=== PATIENT | male | born 1950 | race Caucasian/White ===

== ENCOUNTER 2024-06-15 15:00 | Outpatient (AMB) | payer MEDICARE, SELFPAY ==
--- NOTE | 2024-06-15 15:18 | A.OFFPC_ITS ---
Vital Signs 06/15/24 15:36 Height 5 ft 3 in Weight 163 lb 8 oz BMI 29.0 BP 140/60 H Blood Pressure Location Lt brachial Position Sitting Respiration 14 Pulse 65 Pulse Source Pulse Oximeter Temp 97.9 F Temp Source Oral Pulse Oximetry (%) 96 Oxygen Delivery Method Room Air Intake Visit Reasons: Establish Care Intake Note: establish care Allergies Penicillins Allergy (Intermediate, Verified 06/15/24 15:21) Fainting Tobacco use date assessed: 06/15/24 Dental Screening Dental Screen Date: 06/15/24 Did you have a dental visit in the last 12 months?: Yes Did you have a dental problem in the last 6 months where you did not have access to dental care?: No HPI Establish Care HPI Details New Patient? ?? Prior PCP:? Lizzy Last office visit/CPE:? December Acute issue(s):? Hearing loss Back pain DM A1c in Dec 6.3% ?? PMHx:? CAD, VT, Stents. Murmur. DM2, GERD, Pancreatitis x 2. Ankylosing Spondylitis. SocHx:?Nonsmoker, EtOH None HPI Comments History of Present Illness Details Documentation assistance for John Mendez MD, was provided by Bhaskar Smith,? Research Instructor on 06/15/2024 at 4:05 PM EST. I, Dr. Mendez, have read, observed, and verified documentation. ?? PFSH Social History Housing: Apartment Patient Tobacco Use Status: Never used Tobacco e-Cigarette/Vaping Use: Never Used Second Hand Smoke Exposure: No Current occupational exposures/hazards: No Cognitive needs: No Hearing needs: Yes Vision needs: Yes Questionnaire PHQ-9 Over the last 2 weeks, how often have you been bothered by any of the following problems? 1. Little interest or pleasure in doing things: not at all 2. Feeling down, depressed, or hopeless: not at all 3. Trouble falling or staying asleep, or sleeping too much: not at all 4. Feeling tired or having little energy: not at all 5. Poor appetite or overeating: not at all 6. Feeling bad about yourself - or that you are a failure or have let yourself or your family down: not at all 7. Trouble concentrating on things, such as reading the newspaper or watching television: not at all 8. Moving or speaking so slowly that other people could have noticed. Or the opposite - being so fidgety or restless that you have been moving around a lot more than usual: not at all 9. Thoughts that you would be better off or of hurting yourself in some way: not at all Total score: 0 Depression Screening Interpretation: Negative Depression Screening Done: Yes 46930 - PHQ-9 Billing: Yes Source: Developed by Drs. Matt Ortiz, Jerri Clark, Carlo Coppola and colleagues, with an educational divine from [employer]. Thrive Questionnaire Date Thrive assessed: 06/15/24 I am a: Patient What is your living situation today?: I have a steady place to live Within the past 12 months, did the food you bought not last and you didn't have the money to get more?: Never true Within the past 12 months, did you worry whether your food would run out before you got money to buy more?: I choose not to answer this question Do you have trouble paying for medicines?: No Do you have trouble getting transportation to medical appointments?: No Do you have trouble paying your heating and electricity bill?: I choose not to answer this question Do you have trouble taking care of your child, family member or friend?: I choose not to answer this question Do you have trouble with day-to-day activities such as bathing, preparing meals, shopping, managing finances, etc.?: No Are you currently unemployed and looking for a job?: No Are you interested in more education?: No Please select the resources that you would like help with: None Currently or been in a relationship where the following occur: I choose not to answer THRIVE Score: 0 AUDIT C Alcohol Use Questionnaire (AUDIT-C) 1. How often do you have a drink containing alcohol?: Never Total Score: 0 FRAN-7 AMB Questionnaire FRAN-7 Date FRAN - 7 assessed: 06/15/24 Feeling nervous, anxious, or on edge: 0 = Not at all Not being able to stop or control worryin = Not at all Worrying too much about different things: 0 = Not at all Trouble relaxin = Not at all Being so restless that it is hard to sit still: 0 = Not at all Becoming easily annoyed or irritable: 0 = Not at all Feeling afraid as if something awful might happen: 0 = Not at all Total FRAN-7 score (0-4 normal; 5-9 mild; 10-14 moderate; 15-21 severe): 0 Source: Developed by Drs. Matt Ortiz, Jerri Clark, Carlo Coppola and colleagues, with an educational divine from [employer]. Review of Systems Const Denies chills, Denies fatigue, Denies fever(s), Denies headache(s) and Denies weakness ENT Denies dizziness and Denies headache(s) Card Denies chest pain, Denies lightheadedness, Denies dyspnea and Denies other (Palpitations) Resp Denies cough, Denies dyspnea, Denies wheezing and Denies other ( shortness of breath) Musc Denies numbness and Denies tingling Neuro Denies dizziness, Denies headache(s), Denies numbness, Denies tingling, Denies paresthesias and Denies weakness Psych Denies anxiety and Denies depression Endo Denies fatigue Aller/Immun Denies wheezing Physical exam (Primary Care) Vital Signs: Last Vital Signs Temp 97.9 F 06/15/24 15:36 Pulse 65 06/15/24 15:36 Resp 14 06/15/24 15:36 BP 140/60 H 06/15/24 15:36 Pulse Ox 96 06/15/24 15:36 Oxygen Delivery Method Room Air 06/15/24 15:36 BMI result Body Mass Index 29.0 Tobacco/Smoking Status: Tobacco use Status Tobacco use date assessed 06/15/24 06/15/24 15:39 Patient Tobacco Use Status Never used Tobacco 06/15/24 15:39 e-Cigarette/Vaping Use Never Used 06/15/24 15:39 PHQ-9: PHQ-9 Score PHQ-9: Total score 0 06/15/24 15:39 Depression Screening Interpretation: Negative Thrive Assessment: Date of Thrive Assessment Date Thrive assessed 06/15/24 06/15/24 15:39 Currently or been in a relationship where the following occur: I choose not to answer Const General: no acute distress and well developed Nutritional Appearance: well nourished Orientation/consciousness: patient oriented x3 HENMT Head: Yes normocephalic and Yes atraumatic Eyes General: appearance normal, both eyes and all related structures Pupils: Equal, round and reactive pupils present EOM: EOMs intact bilaterally Resp Effort & Inspection: normal respiratory effort Auscultation: clear to auscultation bilaterally Cardio Rate: regular rate Rhythm: regular rhythm Heart sounds: S1 normal heart sound present, S2 normal heart sound present, no gallops, Murmur heart sound present (Faint) and no rubs Neuro General: patient oriented x3 and gait normal Cranial nerves: Yes Equal, round and reactive pupils present Psych Affect: normal affect Coding Level of Care Code New Pt Level 4 (59730) Diagnoses Hearing loss H91.90 Back pain M54.9 Diabetes E11.9 GERD (gastroesophageal reflux disease) K21.9 History of VT (myocardial infarction) I25.2 Heart murmur R01.1 Coronary artery disease I25.10 History of pancreatitis Z87.19 Cerumen impaction H61.20 Hyperlipidemia E78.5 Hypertension I10 Ankylosing spondylitis M45.9 Neoplasm of uncertain behavior of skin D48.5 Laboratory exam ordered as part of routine general medical examination Z00.00 Additional Codes PHQ-9 - 94671 - PHQ-9 Billing: Yes ([id number]) Assessment & Plan Assessment & Plan (1) Hearing loss: Code(s): H91.90 - Unspecified hearing loss, unspecified ear Category: Medical Plan: Worsening?hearing?loss?and?difficulty?understanding?speech Does?have?mild?cerumen?impactions?which?were?irrigated?today. Has?hearing?aids?but?says?they?needs?be?too?loud?be?comfortable. Referred?to?[facility]?speech?hearing?for?audiology?testing (2) Back pain: Code(s): M54.9 - Dorsalgia, unspecified Category: Medical Plan: History?of?ankylosing?spondylitis Can?not?take?NSAIDs?due?to clopidogrel?and?aspirin?for?coronary?artery?disease?with?stents Referred?to?Rheumatology He?has?been?on?Tylenol?No.?3?which?is?an?old?prescription. He?says?he?only?takes?these?very?rarely It?did?let?him?know?that?opioids?can?make?his?hearing?loss?worse. As?he?is?taking?his?very?sparingly?this?is?less?likely?to?be?a?factor. We?discussed?that?I?would?prescribed?this?on?a?intermittent?basis?when?has?a?fla re-up.??Currently?no?flare?up. (3) Diabetes: Code(s): E11.9 - Type 2 diabetes mellitus without complications Category: Medical Plan: Last?A1c?showed?good?control. Will?check?this?again?with?labs Continue?current?medication (4) GERD (gastroesophageal reflux disease): Code(s): K21.9 - Gastro-esophageal reflux disease without esophagitis Category: Medical Plan: Managed?with?famotidine.??Had?been?on?pantoprazole?in?the?past. Continue?famotidine (5) History of VT (myocardial infarction): Code(s): I25.2 - Old myocardial infarction Category: Medical Plan: As?above,?coronary?artery?disease,?VT?and?stents.??He?was?seen?by Dr. Reynoso but?had?missed?an?appointment?and?is?no?longer?a?patient?there. Referred?to?Cardiology?at?[facility] (6) Heart murmur: Code(s): R01.1 - Cardiac murmur, unspecified Category: Medical Plan: Faint,?stable?murmur (7) Coronary artery disease: Code(s): I25.10 - Atherosclerotic heart disease of [place] coronary artery without angina pectoris Category: Medical Plan: As above referred to Cardiology (8) History of pancreatitis: Code(s): Z87.19 - Personal history of other diseases of the digestive system Category: Medical Plan: Awaiting?records This?sounds?like?gallstone?pancreatitis?x2 Patient?was?referred?to?Gastroenterology (9) Cerumen impaction: Code(s): H61.20 - Impacted cerumen, unspecified ear Category: Medical Plan: Resolved?after?irrigation Try?Debrox?drops (10) Hyperlipidemia: Code(s): E78.5 - Hyperlipidemia, unspecified Category: Medical Plan: Continue?rosuvastatin Check?lipids (11) Hypertension: Code(s): I10 - Essential (primary) hypertension Category: Medical Plan: Continue?metoprolol?and?spironolactone.??Blood?pressure?is?little?elevated?today ?and?goal?is?less?than?130/80. First?visit?with?this?patient. If?blood?pressures?are?still?running?high,?will?adjust?his?medication (12) Ankylosing spondylitis: Code(s): M45.9 - Ankylosing spondylitis of unspecified sites in spine Category: Medical Plan: Referred?to?Rheumatology?as?above (13) Neoplasm of uncertain behavior of skin: Code(s): D48.5 - Neoplasm of uncertain behavior of skin Category: Medical Plan: Small?lesion?on?right?cheek Hospital?and?basal?cell?lesion Referred?to?dermatology (14) Laboratory exam ordered as part of routine general medical examination: Code(s): Z00.00 - Encounter for general adult medical examination without abnormal findings Category: Medical Plan: Check?labs Orders: Orders Comprehensive [place]. Panel Fast Today Z00.00 - Encounter for general adult medical examination without abnormal findings Prostate Specific Antigen Scr Today Z12.5 - Encounter for screening for malignant neoplasm of prostate UA and rflx microscopic Today Z00.00 - Encounter for general adult medical examination without abnormal findings TSH reflex Free T4 Today Z00.00 - Encounter for general adult medical examination without abnormal findings CRP High Sensitivity Today M45.9 - Ankylosing spondylitis of unspecified sites in spine Erythrocyte Sedimentation Rate Today M45.9 - Ankylosing spondylitis of unspecified sites in spine Complete Blood Count Auto Diff Today Z00.00 - Encounter for general adult medical examination without abnormal findings Microalbumin, Random (w Creat) Today I10 - Essential (primary) hypertension Lipid Panel Today Z00.00 - Encounter for general adult medical examination without abnormal findings Hemoglobin A1c Today D48.5 - Neoplasm of uncertain behavior of skin, R73.01 - Impaired fasting glucose Referrals Audiology Referral H91.90 - Unspecified hearing loss, unspecified ear Cardiology Referral I25.10 - Atherosclerotic heart disease of [place] coronary artery without angina pectoris, I25.2 - Old myocardial infarction Gastroenterology Referral K21.9 - Gastro-esophageal reflux disease without esophagitis, Z12.11 - Encounter for screening for malignant neoplasm of colon, Z87.19 - Personal history of other diseases of the digestive system Rheumatology Referral M45.9 - Ankylosing spondylitis of unspecified sites in spine Dermatology Referral D48.5 - Neoplasm of uncertain behavior of skin
[2024-06-15 15:36] VITALS: BP 140/60; PULSE 65; RESP 14; TEMP 36.6; O2SAT 96; BMI 29.0
--- OUTSIDE RECORDS SUMMARY | 2024-06-15 17:31 | XMS_ITS | Encounter Summary ---
Author Name [facility] Address [address] [place] [address] Care Team Providers Care Rehabilitation Services Counselor Name Role Phone CARMELINA CHRISTIANSON Primary Care Provider Unavailabl e Insurance Providers: All historical and current Section Date Range: From patient's date of to the date document was created. This section includes the names of all active insurance providers for the patient. Insurance Provider Type of Coverage Plan Name Start of Policy Coverage End of Policy Coverage Group Number Member ID Insurance Provider's Telephone Number Policy Magana's Name Patient's Relationship to Policy Magana [facility] ([facility]) MEDICARE ADVANTAGE M[employer] ([facility]) Nov 22, 2013 [id number] STEPHANIA,DENI PHEN PATIENT [facility] ([facility]) MEDICARE ADVANTAGE [employer] ([facility]) Nov 22, 2013 [id number] STEPHANIA,DENI PHEN PATIENT [facility] ([facility]) MEDICARE ADVANTAGE [employer] ([facility]) Nov 22, 2013 [id number] [phone] STEPHANIA,DENI PHEN PATIENT Selected Encounter This section includes the information on record at [place] for the Encounter. Date/Time Encounter Type Encounter Description Reason Pro vider Source May 27, 2024 12:00 AM Outpatient Encounter EVENT (HISTORICAL) [facility] Encounter Template Text not used by [facility] Vital Signs: All taken on the encounter date This section contains inpatient and outpatient Vital Signs collected on the date of the Encounter. Date/Time Temperature Pulse Blood Pressure Respiratory Rate SP02 Pain Height Weight Body Mass Index Source May 27, 2024 10:45 AM 169/67 [facility] May 27, 2024 10:45 AM 98.1 63 174/80 18 97 0 63 161.6 29 [facility] Social History: Smoking Status (Most current) and Tobacco Use (All prior to encounter date) This section includes the most current, and the historical, smoking and tobacco- related health factors from the [place] facility where the Encounter took place. Current Smoking Status This section includes the most current smoking, or tobacco-related health factor, from the [place] facility where the Encounter took place. Date/Time Current Smoking Status Comment Facil ity Apr 30, 2020 08:11 AM VA-TOBACCO NEVER USED [facility] Tobacco Use History This section includes a history of the smoking, or tobacco-related health factors, that were collected on or before the date of the Encounter. The data comes from the [place] facility where the Encounter took place. Date/Time Smoking Status/Tobacco Use Comment F acility Mar 25, 2017 03:48 PM LIFETIME NON-TOBACCO USER [facility] Advance Directives: All historical and current Section Date Range: From patient's date of to the date document was created. This section includes ALL of a patient's completed or amended [place] Advance and Rescinded Directives. The entries below indicate that a directive exists for the patient, but an actual copy is not included with this document. The data comes from all [place] facilities. Date Advance Directives Provider Source Mar 14, 2013 ADVANCE DIRECTIVE DISCUSSION [facility]FREN [facility]LEMAN [facility] Mar 14, 2013 ADVANCE DIRECTIVE MELLISSA AVALOS [facility] Nov 05, 2012 ADVANCE DIRECTIVE DISCUSSION VIRY PUCKETT [facility] Feb 27, 2011 ADVANCE DIRECTIVE DISCUSSION CATRACHITA GAUTAM DEPT [facility] Jan 16, 2011 ADVANCE DIRECTIVE DISCUSSION VIRY PUCKETT DEPT [facility] Jan 06, 2011 ADVANCE DIRECTIVE DISCUSSION STEFANY MATTHEW DEPT OF [facility]
--- OUTSIDE RECORDS SUMMARY | 2024-06-15 17:31 | XMS_ITS | Encounter Summary ---
Author Name [facility] [facility] [place] Address [address] [place] [address] Care Team Providers Care Quality Liaison Name Role Phone CARMELINA CHRISTIANSON Primary Care [...] Magana's Name Patient's Relationship to Policy Magana [facility] ([facility]) MEDICARE ADVANTAGE MCR ([facility]) Nov 22, 2013 [id number] [phone] STEPHANIA,DENI PHEN PATIENT [facility] ([facility]) MEDICARE ADVANTAGE MCR ([facility]) Nov 22, 2013 [id number] STEPHANIA,DENI PHEN PATIENT [facility] ([facility]) MEDICARE ADVANTAGE MCR ([facility]) Nov 22, 2013 [id number] STEPHANIA,DENI PHEN PATIENT Selected Encounter This section includes the information on record at [place] for the Encounter. Date/Time Encounter Type Encounter Description Reason Provider Source May 27, 2024 10:30 AM OFFICE O/P EST LOW 20 MIN PRIMARY CARE/MEDICINE ICD-10-CM I10 Essential (primary) hypertension CARMELINA CHRISTIANSON Allie Encounter Template Text not used by [place] Assessments - Encounter Diagnoses This section includes the primary and secondary diagnoses documented for the Encounter. Date/Time Primary/Secondary Diagnosis Diagnosis Name Provider Source May 27, 2024 11:28 AM PRIMARY Essential (primary) hypertension CARMELINA CHRISTIANSON ARMEN May 27, 2024 11:28 AM SECONDARY Anxiety disorder, unspecified CARMELINA CHRISTIANSON RONDA May 27, 2024 11:28 AM SECONDARY Encounter for immunization ELIJAH HIGGINBOTHAM RONDA Immunizations: All administered on the encounter date This section contains immunizations associated to the Encounter. Immunization Series Date Issued Reaction Comments INFLUENZA, HIGH-DOSE, TRIVALENT, PF May 27 Social History: Smoking Status (Most current) and Tobacco Use (All prior to encounter date) This section includes the most current, and the historical, smoking and tobacco- related health factors from the [place] facility where the Encounter took place. Current Smoking Status This section includes the most current smoking, or tobacco-related health factor, from the [place] facility where the Encounter took place. Date/Time Current Smoking Status Comment Silvia ity May 27, 2023 10:30 AM VA-TOBACCO NEVER USED RONDA Tobacco Use History This section includes a history of the smoking, or tobacco-related health factors, that were collected on or before the date of the Encounter. The data comes from the [place] facility where the Encounter took place. Date/Time Smoking Status/Tobacco Use Comment F acility May 12, 2022 11:00 AM VA-TOBACCO NEVER USED RONDA May 30, 2021 10:30 AM VA-TOBACCO NEVER USED RONDA Nov 08, 2018 11:16 AM VA-TOBACCO NEVER USED RONDA Apr 27, 2018 06:23 AM VA-TOBACCO NEVER USED RONDA Advance Directives: All historical and current Section Date Range: From patient's date of to the date document was created. This section includes ALL of a patient's completed or amended VA Advance and Rescinded Directives. The entries below indicate that a directive exists for the patient, but an actual copy is not included with this document. The data comes from all [place] facilities. Date Advance Directives Provider Source Mar 14, 2013 ADVANCE DIRECTIVE DISCUSSION EFREN ALEMAN [facility] Mar 14, 2013 ADVANCE DIRECTIVE MELLISSA AVALOS [facility] Nov 05, 2012 ADVANCE DIRECTIVE DISCUSSION VIRY PUCKETT [facility] Feb 27, 2011 ADVANCE DIRECTIVE DISCUSSION CATRACHITA GAUTAM KYLEE DELACRUZ [facility] Jan 16, 2011 ADVANCE DIRECTIVE DISCUSSION VIRY PUCKETT [facility] Jan 06, 2011 ADVANCE DIRECTIVE DISCUSSION MATTHEWSTEFANY [facility] Encounter Notes: All associated encounter notes This section contains the clinical notes associated to the Encounter. Date/Time Encounter Note(s) Provider Source May 27, 2024 10:58 AM PREVENTIVE MEDICIN E NURSING NOTE: LOCAL TITLE: CLINICAL REMINDERS/NURSING STANDARD TITLE: PREVENTIVE MEDICINE NURSING NOTE DATE OF NOTE: MAY 27, 2024@10:58 ENTRY DATE: MAY 27, 2024@10:58:43 AUTHOR: EMILY HIGGINBOTHAM COSIGNER: URGENCY: STATUS: COMPLETED Advance Directive Screen MH AD: Patient does not have a completed advance directive on file at any facility, [place] or outside. S/he is not interested in completing one at this time. The patient received education about Advance Directives and written notification of his/her rights. Suicide Screen: C-SSRS Screening [place] Suicide Severity Rating Scale (C-SSRS) screener 1. Over the past month, have you wished you were or wished you could go to sleep and not wake up? No 2. Over the past month, have you had any actual thoughts of killing yourself? No 3. Over the past month, have you been thinking about how you might do this? Response not required due to responses to other questions. 4. Over the past month, have you had these thoughts and had some intention of acting on them? Response not required due to responses to other questions. 5. Over the past month, have you started to work out or worked out the details of how to kill yourself? Response not required due to responses to other questions. 6. If yes, at any time in the past month did you intend to carry out this plan? Response not required due to responses to other questions. 7. In your lifetime, have you ever done anything, started to do anything, or prepared to do anything to end your life (for example, collected pills, obtained a gun, gave away valuables, went to the roof but didn't jump)? No 8. If YES, was this within the past 3 months? Response not required due to responses to other questions. Homelessness/Food Insecurity Screen: In the past 2 months, have you been living in stable housing that you own, rent, or stay in as part of a household? Yes - Living in stable housing. Are you worried or concerned that in the next 2 months you may NOT have stable housing that you own, rent, or stay in as part of a household? No - Not worried about housing near future The [facility] reports the following: Within the past 12 months, you worried whether your food would run out before you got money to buy more. Never true Within the past 12 months, the food you bought just didn't last and you didn't have money to get more. Never true Depression Screening: Perform PHQ-2 A PHQ-2 screen was performed. The score was 0 which is a negative screen for depression. Over the past two weeks, how often have you been bothered by the following problems? 1. Little interest or pleasure in doing things Not at all 2. Feeling down, depressed, or hopeless Not at all Falls & Incontinence Screen: Falls Screen: During the past 12 months, did the patient report any falls? 4. No falls within the past year. Incontinence Screen: During the past 12 months, has the patient has any characteristics of incontinence (ability, voiding, leakage, etc.)? No incontinence. Pneumococcal Conjugate Vaccine (PCV15/PCV20): Refuses PCV vaccine Immunization: PNEUMOCOCCAL CONJUGATE, UNSPECIFIED FORMULATION Refusal Reason: PATIENT DECISION Patient refuses all immunization(s) in the PneumoPCV group Date Documented: 05/27/24 11:00 Influenza Immunization: Influenza, High-Dose, Trivalent, Preservative Free (Fluzone-Syringe) Administered: INFLUENZA, HIGH-DOSE, TRIVALENT, PF Date Administered: May 27, 2024 10:30 Series: [employer] Executive Director: SANOFI PASTEUR Lot: [id number] Exp Date: Nov 21, 2024 [facility]: [phone] Admin Route/Site: INTRAMUSCULAR/LEFT DELTOID Dosage: 0.5mL Vaccine Information Statement(s): INFLUENZA(FLU) VACC(INACTIVATED OR RECOMBINANT)VIS Dec 28, 2020 (BULGARIAN) Order By: Policy Administered By: Emily Higginbotham The Influenza Vaccine Information Statement (VIS) was reviewed with the patient/caregiver which lists the benefits and risks of the vaccine and the risks of not receiving the Influenza vaccine. The patient/caregiver denied any prior severe reaction to this vaccine or its components or a severe allergic reaction, such as anaphylaxis, to any vaccine or any injectable therapy. The patient/caregiver gave verbal consent to receive the vaccine. Alcohol Use Screen (AUDIT-C): Alcohol Screen: SCREEN FOR ALCOHOL (AUDIT-C) An alcohol screening test (AUDIT-C) was negative (score=0). 1. How often did you have a drink containing alcohol in the past year? Consider a drink to be a 12 ounce can or bottle of regular beer, 8 ounces of malt liquor, a 5 ounce glass of table wine, or a 1.5 ounce shot of liquor (like scotch, gin, or vodka). Never 2. How many drinks containing alcohol did you have on a typical day when you were drinking in the past year? Response not required due to responses to other questions. 3. How often did you have six or more drinks on one occasion in the past year? Response not required due to responses to other questions. COVID-19 Immunization: Refused Moderna Monovalent COVID-19 vaccine Immunization: COVID-19 (MODERNA), MRNA, LNP-S, PF, 50 MCG/0.5 ML (AGES 12+ YEARS) Refusal Reason: PATIENT DECISION Patient refuses all immunization(s) in the COVID-19 group Date Documented: 05/27/24 11:00 Herpes Zoster (Shingles) Vaccine: The patient declines to receive the recommended dose of zoster (shingles) vaccine. Immunization: ZOSTER RECOMBINANT Refusal Reason: PATIENT DECISION Patient refuses all immunization(s) in the ZOSTER group Date Documented: 05/27/24 11:01 RSV Immunization: Respiratory Syncytial Virus (RSV) Vaccine: Refused [email or web address] (RSV vaccine, adjuvanted, Arexvy). Immunization: RSV, RECOMBINANT, PROTEIN SUBUNIT RSVPREF3, ADJUVANT RECONSTITUTED, 0.5 ML, PF Refusal Reason: PATIENT DECISION Patient refuses all immunization(s) in the RSV group Date Documented: 05/27/24 11:01 Sexual Orientation: The patient thinks of their sexual orientation as: Straight or Heterosexual RHS Screen: RHS Screen Session Format: Face to Face Environmental Check Upon inquiry, the individual reports that the environment is safe to proceed. Informed Consent to Screen and Document The individual consents to proceed with screening. The individual consents to documentation of responses. PRIMARY SCREEN: In the past 12 months, how often did a current or former intimate partner (e.g., boyfriend, girlfriend, , , sexual partner): 1. Scream or curse at you Never 2. Insult or talk down to you Never 3. Threaten you with harm Never 4. Physically hurt you Never 5. Force or pressure you to have sexual contact against your will, or when you were unable to say no Never ?? The HITS tool (items 1-4 above) is [place] copyright protected by Arvin Mcgraw MD, and the user has full rights to use it throughout the [place] system. PRIMARY SCREEN RESULT: The Primary Screen is NEGATIVE. The individual answered never to all forms of IPV above (i.e., answered never to all 5 items) The individual accepts education and/or resources: No EDUCATION: The individual indicated readiness to learn. Education offered during this session as noted above. The individual indicated understanding by asking relevant questions and making appropriate comments. No barriers to learning were observed or identified. PAVE Foot Check: Patient declined limb care exam. The patient was advised the [place] mandates all patients with diabetes mellitus, end stage renal disease, peripheral vascular disease, or sensory neuropathy should have a complete foot check completed annually. This includes a visual exam of the skin, pedal pulses and a sensory exam. Patients with any abnormality noted during the foot check should be referred to a specialist. Eye Care At-Risk Screen : Patient identified to be at risk for the following eye condition(s): DIABETIC RETINOPATHY: Diabetes Diagnosis Information: Encounter Diagnosis: 05/27/2023@10:30 E11.9 (ICD-10-CM) Type 2 Diabetes Mellitus without Complications rank: SECONDARY Prov. Narr. - Type 2 diabetes mellitus ([facility] [id number]) MACULAR DEGENERATION: Macular Degeneration Risk Factors Information: Reminder Term: VA-AMD RISK FACTORS Hospitalization Diagnosis 08/05/2020@11:15:36 I25.10 (ICD-10-CM) Atherosclerotic Heart Disease of [place] Coronary Artery without Angina Pectoris; data node: M ICD4; (Fee) Action: No Referral Ordered: The patient declined/refused referral for Tele-Eye screening and Eye Clinic appointment. Comment: decline /es/ EMILY HIGGINBOTHAM LPN PACT 10 Signed: 05/27/2024 11:02 EMILY HIGGINBOTHAM RONDA May 27, 2024 06:43 AM PHYSICIAN NOTE: LOCAL TITLE: MD NOTE STANDARD TITLE: PHYSICIAN NOTE DATE OF NOTE: MAY 27, 2024@06:43 ENTRY DATE: MAY 27, 2024@06:43:23 AUTHOR: CARMELINA CHRISTIANSON EXP COSIGNER: URGENCY: STATUS: COMPLETED HISTORY OF PRESENT ILLNESS: FATEMEH CAT is a 73 yo MALE who presents at the [facility] for for his annual visit. He maintains a nonVA PCP: Dr Mendez in [place]. He utilizes [place] audiology services. Active problems - Computerized Problem List is the source for the followin. Anxiety disorder 2. History of pancreatitis 3. Colonoscopy Screening 4. Ankylosing spondylitis 5. Hypertension 6. History of myocardial infarction 7. Type 2 diabetes mellitus 8. Hemorrhoids 9. Gastroesophageal reflux disease 10. Peripheral vascular disease 11. Arthritis 12. Hyperlipidemia 13. 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 Primary Care Provider Active and Recently Outpatient Medications (including Supplies): Active Non-VA Medications Status 1) Non-VA ALPRAZOLAM 0.5MG TAB 0.5MG BY MOUTH ACTIVE 2) Non-VA ASPIRIN 81MG EC TAB 81MG BY MOUTH ACTIVE 3) Non-VA CLOPIDOGREL BISULFATE 75MG TAB 75MG BY MOUTH ACTIVE 4) Non-VA FAMOTIDINE 40MG TAB 40MG BY MOUTH ONCE DAILY ACTIVE NEEDED 5) Non-VA FLUTICASONE NASAL SOLN,NASAL INTO EACH NOSTRIL ACTIVE 6) Non-VA GLIPIZIDE 2.5MG SA TAB 2.5MG BY MOUTH ONCE DAILY ACTIVE 7) Non-VA METOPROLOL TARTRATE 50MG TAB 50MG BY MOUTH TWICE ACTIVE DAILY 8) Non-VA NITROGLYCERIN 0.4MG TAB,SUBLINGUAL UNDER THE TONGUE ACTIVE EVERY 5 MINUTES NEEDED 9) Non-VA ROSUVASTATIN CA 40MG TAB 40MG BY MOUTH ACTIVE Indication: FOR HIGH CHOLESTEROL 10) Non-VA SPIRONOLACTONE 25MG TAB 25MG BY MOUTH ONCE DAILY ACTIVE ALLERGIES: ========= PENICILLIN HISTORY: PERIOD OF SERVICE - [employer] FROM Jan TO Dec COMBAT SERVICE INDICATED: No VITAL SIGNS: Blood Pressure 169/67 (05/27/2024 10:45) BP At PCP office: 124/78 Pulse 63 (05/27/2024 10:45) Respiration 18 (05/27/2024 10:45) Pulse Oximetry 97% (05/27/2024 10:45) Temperature 98.1 F [36.7 C] (05/27/2024 10:45) Pain 0 (05/27/2024 10:45) Height 63 in [160.0 cm] (05/27/2024 10:45) Weight 161.6 lb [73.30 kg] (05/27/2024 10:45) BMI BMI: 28.7 REVIEW OF SYSTEMS: CARDIOVASCULAR: No chest pain, no palps RESPIRATORY: No SOB, no wheezing GASTROINTESTINAL: No abd pain, no N/V/D MUSCULOSKELETAL: No joint pain PSYCHIATRIC: ++ anxiety, no depression NEUROLOGIC: No H/A, no weakness EXAMINATION: GENERAL: WD/WN in NAD HEENT: Moist mucosa NECK: Supple HEART: RRR, S1-S2, no murmurs LUNGS: CTA B/L ABDOMEN: Soft, NT/ND EXTREMITIES: FROM x 4, no edema NEUROLOGIC: AAO x3, no focal findings PSYCHIATRIC: Good eye contact, affect normal ASSESSMENT/PLAN: 1. CAD s/p NV x2 (2004 & 2016) w/8 stents total: on Plavix 75mg/day, on BB, ASA, & Statin, managed by Dr Reynoso 2. HTN: on metoprolol tartrate 50mg BID and spironolactone 25mg/day, BP at PCP office last visit was 124/78 3. DM II: on glipizide ER 2.5mg/day Eye exam: 2022 - nonVA [facility] - neg DR tatiana coxt Podiatry exam: 2022 - performed by nonVA PCP - neg DPN 4. Mixed Hyperlipidemia: on rosuvastatin 40mg QHS 5. GERD: uses TUMS prn 6. Anxiety D/O: on alprazolam 0.25mg/day prn (does not take it often), lost his (2011) and his son (2012) 7. Allergic Rhinitis: on fluticasone NS prn 8. Ankylosing Spondylitis: uses tylenol #3 for occ flare-ups FOLLOW UP 1 Year - Annual - vet to bring PCP labs ========= No barriers; Patient understands and agrees to current treatment plan. If pt has any questions, concerns, or changes in current health status he/she will call or come in to the [facility]. Avg Risk Colorectal Cancer Screen: AVERAGE RISK colorectal cancer screening is due based on information available to this clinical reminder Patient has arranged or is choosing to arrange this care independent of and without assistance from this VA. Hemoglobin A1C: Patient declines Hemoglobin A1C testing at this time. Hepatitis C Testing: Patient declines HCV lab test. High Risk for HYPOglycemia: Not reported. Hypoglycemic screen clinical decision: Home Telehealth (CCHT) Referral: Patient not a candidate for CCHT Program at this time. Assess Statin Use - Lipids (CVD/DM): The patient is still taking the NON-VA statin medication as documented. HIV Screening: Patient has been offered HIV testing and has declined. I have explained that HIV testing is recommended for all adults, even if all risk factors are absent. The patient was educated on the risk of delayed screening. Medication Reconciliation: Outpatient: Has the patient been taking medications as documented in the EMLR? YES: The patient has been taking medications as documented in the EMLR. Essential Medication List for Review used to complete this medication reconciliation. INCLUDED IN THIS LIST: Alphabetical list of active outpatient prescriptions dispensed from this [place] (local) and dispensed from another [place] or [facility] facility (remote) as well as inpatient orders (local, pending and active), local clinic medications, locally documented non-VA medications, and local prescriptions that have or been discontinued in the past 90 days. - All changes in medications, including all non-VA/Herbal/OTC medications were entered into CPRS. - If there were any medications the patient should no longer take, they were discontinued. - The patient/caregiver was instructed to update this list, discard old lists, and take this list to the next appointment, whether with a VA or non-VA provider. JLV Link Data on this list may not be complete. Please check JLV. Allergies/ADRs (Tool #5) FACILITY ALLERGY/ADR -------- Mary DELACRUZ [facility] LOVASTATIN C.WCristi DELACRUZ [facility] PENICILLIN C.W. PAULA DELACRUZ [facility] SIMVASTATIN [facility] LOVASTATIN [facility] PENICILLIN [facility] SIMVASTATIN [place] CNT WSTRN [place] [facility] PENICILLIN Med Recon [facility] (Tool #1) INCLUDED IN THIS LIST: Alphabetical list of active outpatient prescriptions dispensed from this [place] (local) and dispensed from another [place] or [facility] facility (remote) as well as inpatient orders (local pending and active), local clinic medications, locally documented non-VA medications, and local prescriptions that have or been discontinued in the past 90 days. Non-VA Meds Last Documented On: May 27, 2024 NOTE The display of VA prescriptions dispensed from another [place] or [facility] facility (remote) is limited to active outpatient prescription entries matched to National Drug File at the originating site and may not include some items such as investigational drugs, compounds, etc. NOT INCLUDED IN THIS LIST: Medications self-entered by the patient into personal health records (i.e. [facility]) are NOT included in this list. Non-VA medications documented outside this [place], remote inpatient orders (regardless of status) and remote clinic medications are NOT included in this list. The patient and provider must always discuss medications the patient is taking, regardless of where the medication was dispensed or obtained. ------ Non-VA ALPRAZOLAM 0.5MG TAB TAKE ONE TABLET BY MOUTH Non-VA medication not recommended by VA provider. Non-VA ASPIRIN 81MG EC TAB TAKE ONE TABLET BY MOUTH Non-VA medication not recommended by VA provider. Non-VA CLOPIDOGREL BISULFATE 75MG TAB TAKE ONE TABLET BY MOUTH Non-VA medication not recommended by VA provider. Non-VA FAMOTIDINE 40MG TAB TAKE ONE TABLET BY MOUTH ONCE DAILY NEEDED Patient wants to buy from Non-VA pharmacy. Medication prescribed by Non-VA provider. Non-VA FLUTICASONE NASAL SOLN,NASAL INSTILL INTO EACH NOSTRIL Non-VA medication not recommended by VA provider. Non-VA GLIPIZIDE 2.5MG SA TAB TAKE ONE TABLET BY MOUTH ONCE DAILY Medication prescribed by Non-VA provider. Non-VA METOPROLOL TARTRATE 50MG TAB TAKE ONE TABLET BY MOUTH TWICE DAILY Medication prescribed by Non-VA provider. Non-VA NITROGLYCERIN 0.4MG TAB,SUBLINGUAL DISSOLVE UNDER THE TONGUE EVERY 5 MINUTES NEEDED Non-VA medication not recommended by VA provider. Non-VA ROSUVASTATIN CA 40MG TAB TAKE ONE TABLET BY MOUTH Non-VA medication not recommended by VA provider. Indication: FOR HIGH CHOLESTEROL Non-VA SPIRONOLACTONE 25MG TAB TAKE ONE TABLET BY MOUTH ONCE DAILY Non-VA medication not recommended by VA provider. ------ SUPPLIES ------ HTN Assess for Elevated BP>=140/90: The patient's blood pressure is usually adequately controlled. No medication changes are indicated at this time. /maryann/ CARMELINA CHRISTIANSON MD Primary Care Physician Signed: 05/27/2024 11:30 CARMELINA CHRISTIANSON RONDA
--- OUTSIDE RECORDS SUMMARY | 2024-06-15 17:31 | XMS_ITS | Continuity of Care Document ---
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 It does not include entries that were removed or entered in error. Problem Status Onset Date Problem Type Date of Resolution Comments Source Allergic rhinitis Active Condition [place] Angina Pectoris * (ICD-9-CM 413.9) Active Condition Mary DELACRUZ [facility] Ankylosing spondylitis Active Condition [facility] Ankylosing Spondylitis * (ICD-9-CM 720.0) Active Condition Mary DELACRUZ [facility] Anxiety Active Condition [place] Anxiety (SNOMED CT [id number]) Active Condition Mary DELACRUZ [facility] Anxiety disorder Active Condition [facility] Arthritis Active Condition [facility] Bilateral sensory hearing loss Active Condition [place] CAD/ASHD UNSP VSL Active Condition Mary DELACRUZ [facility] Chest Pain * (ICD-9-CM 786.50) Active Condition Mary DELACRUZ [facility] Colonoscopy Screening Active Condition [facility] Depression * (ICD-9-CM 300.4/311.) Active Condition Mary DELACRUZ [facility] Dermatitis * (ICD-9-CM 692.9) Active Condition Mary DELACRUZ [facility] Diabetes mellitus Active Condition Mary DELACRUZ [facility] Epidermal Cyst * (ICD-9-CM 706.2) Active Condition Mary DELACRUZ [facility] Essential hypertension Active Condition [place] Gastroesophageal reflux disease Active Condition [facility] GERD * (ICD-9-CM 530.81) Active Condition Mary [facility]ACRZU [facility] Hearing loss * (ICD-9-CM 389.9) Active Condition C.Abrahan DELACRUZ [facility] Hemorrhoids Active Condition [facility] Hernia of abdominal wall Active Condition [place] History of myocardial infarction Active Condition Mar 27, 2017 Entered By: CARMELINA CHRISTIANSON Comment: Hx CO w/Stent 06/16/16Mar 27, 2017 Entered By: CARMELINA CHRISTIANSON Comment: Hx CO w/6 stents 2004 [facility] History of pancreatitis Active Condition Mar 27, 2017 Entered By: CARMELINA CHRISTIANSON Comment: 2013 [facility] Hyperlipidemia Active Condition [facility] HYPERLIPIDEMIA Active Condition C.Abrahan DELACRUZ [facility] Hypertension Active Condition [facility] HYPERTENSION,UNSPEC Active Condition Martha DELACRUZ [facility] Impacted cerumen * (ICD-9-CM 380.4) Active Condition Mary DELACRUZ [facility] 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 Mar 25, 2017 Entered By: CARMELINA CHRISTIANSON Comment: EF 40-45% [facility] Lipoma Active Condition [place] Major Depressive Disorder, Single Episode, in Full Remission Active Condition Mary [facility]ACRUZ [facility] CO,HX Active Condition Mary DELACRUZ [facility] Multi vessel coronary artery disease Active Condition [place] Obesity Active Condition [place] Obesity * (ICD-9-CM 278.00) Active Condition Mary DELACRUZ [facility] Other disorders of skin and subcutaneous tissue (ICD-9-CM 709.9) Active Condition Mary [facility]ACRUZ [facility] Pain in joint involving shoulder region (ICD-9-CM 719.41) Active Condition Mary [facility]ACRUZ [facility] Peripheral vascular disease Active Condition [facility] [place] [facility] Primary Care Provider Active Condition May 12, 2022 Entered By: JORDAN HIGGINBOTHAM Comment: Dr Marlen Romo [facility] Rhinitis * (ICD-9-CM 472.0) Active Condition Mary DELACRUZ [facility] S/P PTCA Active Condition Mary DELACRUZ [facility] Tinnitus Active Condition [place] Type 2 diabetes mellitus [facility] [place] [facility] Diagnosis: ICD-10-CM I10 Essential (primary) hypertension Active Diagnosis [place] Diagnosis: ICD-10-CM I51.9 Heart disease, unspecified Active Diagnosis [place] Medications Combined list of outpatient medications from Department of Defense and Veterans Affairs facilities.Medications provided include 1) outpatient medications from the last 15 months, and 2) patient-reported medications. Medication Details Route Status Patient Instructions Prescription Expires Prescription Number Last Dispense Date Ordering Provider Order Date Order Qty Source ALPRAZOLAM 0.25MG TAB TAKE ONE TABLET BY MOUTH ORAL ACTIVE TYRON FUENTES MD 2014 [place] ALPRAZOLAM 0.5MG TAB TAKE ONE TABLET BY MOUTH ORAL ACTIVE IRAM CHRISTIANSON SA 2019 [place] ASPIRIN 81MG TAB,EC ORAL ACTIVE MARCE SCHUSTER CQUELINE 2012 Mary DELACRUZ [facility] ASPIRIN 81MG TAB,EC TAKE ONE TABLET BY MOUTH ORAL ACTIVE IRAM CHRISTIANSON SA 2016 [place] ASPIRIN 81MG TAB,EC TAKE (DO NOT CRUSH) ONE TABLET BY MOUTH EVERY DAY ORAL ACTIVE TYRON FUENTSE MD 2014 [place] BUSPIRONE TAB TAKE 7.5MG BY MOUTH TWICE A DAY ORAL ACTIVE TYRON FUENTES MD 2014 [place] CHOLECALCIF RICHARD 25MCG (1,000UNIT) TAB TAKE ONE TABLET BY MOUTH DAILY ORAL ACTIVE MARCE SCHUSTER CQUELINE 2012 Mary DELACRUZ [facility] CLOPIDOGREL BISULFATE 75MG TAB TAKE ONE TABLET BY MOUTH ORAL ACTIVE IRAM CHRISTIANSON SA ROSA 2016 [place] FAMOTIDINE 40MG TAB TAKE ONE TABLET BY MOUTH ONCE DAILY NEEDED ORAL ACTIVE IRAM CHRISTIANSON SA 2021 [place] [facility] [place] [facility] FLUTICASONE NASAL SOLN,NASAL INSTILL INTO EACH NOSTRIL NASAL ACTIVE IRAM CHRISTIANSON SA 2016 [place] GLIPIZIDE 2.5MG TAB,SA TAKE ONE TABLET BY MOUTH ONCE DAILY ORAL ACTIVE IRAM CHRISTIANSON SA 2021 [facility] [place] [facility] LISINOPRIL 10MG TAB TAKE ONE TABLET BY MOUTH EVERY DAY ORAL ACTIVE TYRON FUENTES MD 2014 [place] METOPROLOL TARTRATE 50MG TAB TAKE ONE TABLET BY MOUTH TWICE A DAY ORAL ACTIVE TYRON FUENTES MD 2014 [place] METOPROLOL TARTRATE 50MG TAB TAKE ONE TABLET BY MOUTH TWICE DAILY ORAL ACTIVE IRAM CHRISTIANSON SA [address] [facility] IELD NITROGLYCER IN 0.4MG TAB,SUBLING UAL DISSOLVE UNDER THE TONGUE EVERY 5 MINUTES NEEDED SUBLIN GUAL ACTIVE IRAM CHRISTIANSON SA 2016 [place] NITROGLYCER IN 0.4MG TAB,SUBLING UAL DISSOLVE ONE TABLET UNDER THE TONGUE NOW, IF NO RELIEF IN 5 MINUTES CALL 911. SUBLIN GUAL ACTIVE TYRON FUENTES MD 2014 [place] ROSUVASTATI N [place] 40MG TAB TAKE ONE TABLET BY MOUTH ORAL ACTIVE RA KELLY PIERRE 2022 [facility] SPIRON[facility] ONE 25MG TAB TAKE ONE TABLET BY MOUTH ONCE DAILY ORAL ACTIVE IRAM CHRISTIANSON SA 2021 [facility] Allergies, Adverse Reactions, Alerts Combined list of allergies from Department of Defense and Veterans Affairs facilities. It does not include entries that were removed or entered in error. Substance Category Reaction Severity Reaction type Status Date Reported Comments Source LOVASTATIN Propensity to adverse reactions to drug (finding) active 5 [facility] PENICILLIN Propensity to adverse reactions to drug (finding) NAUSEA,VO MITING, Fever active 4 Mary DELACRUZ DEPT [facility] PENICILLIN Propensity to adverse reactions to drug (finding) active 7 [facility] [place] [facility] SIMVASTATIN Propensity to adverse reactions to drug (finding) active 5 [facility] ZOCOR Propensity to adverse reactions to drug (finding) active 8 Mary DELACRUZ [facility] Immunizations Combined list of available immunizations from the Department of Defense and Veterans Affairs facilities. Immunization Series Date Given Administered By Site Reaction Lot Number CVX Code Drug Cnc Grinder Status Comments Source INFLUENZA, HIGH-DOSE, TRIVALENT, PF 2024 ALEJANDRA HIGGINBOTHAM ON M LEFT DELTO ID [id number] 135 complet ed [place] COVID-19 (MODERNA), MRNA, LNP-S, PF, 50 MCG/0.5 ML (AGES 12+ YEARS) 2023 ALEJANDRA HIGGINBOTHAM ON M LEFT DELTO ID [id number] 312 complet ed [place] INFLUENZA, UNSPECIFIED FORMULATION 2021 88 complet ed [facility] COVID-19 (MODERNA), MRNA, LNP-S, PF, 100 MCG OR 50 MCG DOSE 3 2021 207 complet ed MOD; [id number]; 2 [place] COVID-19 (MODERNA), MRNA, LNP-S, PF, 100 MCG/0.5 ML DOSE 2 2020 207 complet ed MOD; [id number]; 1 [place] COVID-19 (MODERNA), MRNA, LNP-S, PF, 100 MCG/0.5 ML DOSE 1 2020 207 complet ed MOD; [id number]; 1 [place] INFLUENZA, UNSPECIFIED FORMULATION 2019 88 complet ed [facility] [place] [facility] INFLUENZA, SEASONAL, INJECTABLE 2017 141 complet ed cvs [facility] INFLUENZA, SEASONAL, INJECTABLE 2016 141 complet ed non va [facility] TDAP 2016 115 complet ed Given by his PCP ,Vet will provide documenta tion. [place] [facility] [place] [facility] PNEUMOCOCCAL CONJUGATE PCV 13 2014 133 complet ed [place] FLU,3 YRS (HISTORICAL) 2014 88 complet ed Community PCP [facility] DTAP, UNSPECIFIED FORMULATION 2014 107 complet ed [place] TET-DIP-A/PER TUSSIS (HISTORICAL) 2014 NONE 139 complet ed [place] FLU,3 YRS (HISTORICAL) 2013 88 complet ed Community provider [facility] INFLUENZA, UNSPECIFIED FORMULATION 2012 88 complet ed Mary DELACRUZ [facility] INFLUENZA, UNSPECIFIED FORMULATION 2011 NONE 88 complet ed Left Deltoid (IM) C.WCristi DELACRUZ [facility] INFLUENZA, UNSPECIFIED FORMULATION 2010 88 complet ed does not remember the date Mary DELACRUZ [facility] INFLUENZA, UNSPECIFIED FORMULATION 2008 NONE 88 complet ed Left Deltoid (IM) C.Abrahan DELACRUZ [facility] NOVEL INFLUENZA-H1N 1-09, ALL FORMULATIONS 2008 128 complet ed [employer] C.WCristi DELACRUZ [facility] INFLUENZA, UNSPECIFIED FORMULATION 2006 NONE 88 complet ed Left Deltoid (IM), Lot Number:[id number] 10/30 Mary DELACRUZ [facility] FLU,3 YRS (HISTORICAL) 2006 DARELL ZENDEJAS 88 complet ed C.Abrahan DELACRUZ [facility] FLU,3 YRS (HISTORICAL) 2004 SCOTT VANG 88 complet ed C.WCristi DELACRUZ [facility] PNEUMOCOCCAL (HISTORICAL) 2004 109 complet ed Right Deltoid (IM), Lot Number: [id number] ex. 09-16-06 Mary DELACRUZ [facility] FLU,3 YRS (HISTORICAL) 2003 BRITT RODRIGUEZ 88 complet ed [place].Abrahan DELACRUZ [facility] TETANUS TOXOID, UNSPECIFIED FORMULATION 2003 112 complet ed Left Deltoid lot#[id number] AA ex 11/26 [facility] Vital Signs Combined list of inpatient and outpatient Vital Signs from Department of Defense and Veterans Affairs, ranging from 12 months to all on record, depending upon the facility. Vital Sign Value Date Comments Source SYSTOLIC BLOOD PRESSURE 174 05/27/19 25 10:45:11 [facility] DIASTOLIC B[facility] PRESSURE 80 025 10:45:11 [facility] PULSE OXIMETRY 97 05/27/2024 10:45:11 [facility] WEIGHT 161.6 05/27/2024 10:45:11 [facility] BMI 29kg/m2 05/27/2024 10:45:11 [facility] PAIN 0 05/27/2024 10:45:11 [facility] HEIGHT 63 05/27/2024 10:45:11 [facility] TEMPERATURE 98.1 05/27/2024 10:45:11 [facility] PULSE 63 05/27/2024 10:45:11 [facility] RESPIRATION 18 05/27/2024 10:45:11 [facility] Encounters Combined list of: 1) Encounters from Department of Veterans Affairs facilities going back up to thelast 18 months. 2) Encounters from the Department of Defense facilities going back up to 280 months. Location Location Details Encounter Type Encounter Number Reason For Visit Attending Provider ADM Date DC Date Status Disposition Source [facility] Out[facility] Encounter [id number] 04/21 [facility] En[facility] [id number] 05/27 [facility] [place] [facility] O/P EST MOD 30 MIN [id number] Diagnos is: ICD-10- CM I51.9 Heart disease , unspeci fied
SAEID CHRISTIANSON 05/27 [place] [facility] Out[facility] Encounter [id number] 05/27 [facility] [place] O/P EST LOW 20 MIN [id number] Diagnos is: ICD-10- CM I10 Essenti al (primar y) hyperte nsion<b r/> SAEID CHRISTIANSON 05/27 [facility] [place] Social History Combined list of available smoking, tobacco, and other social history from Department of Defense and Veterans Affairs facilities. Social History Type Response Date Comment Source Tobacco smoking status [facility]-TOBACCO NEVER USED 05/27/2023 [place] History of tobacco use [place]-TOBACCO NEVER USED 05/12/2022 [place] History of tobacco use [place]-TOBACCO NEVER USED 05/30/2021 [place] History of tobacco use [place]-TOBACCO NEVER USED 04/30/2020 [facility] [place] [facility] History of tobacco use [place]-TOBACCO NEVER USED 11/08/2018 [place] History of tobacco use [place]-TOBACCO NEVER USED 04/27/2018 [place] History of tobacco use LIFETIME NON-TOBACCO USER 03/25/2017 [facility] [facility] History of tobacco use LIFETIME NON-TOBACCO USER 11/19/2015 [place] History of tobacco use LIFETIME NON-TOBACCO USER 08/30/2014 [place] History of tobacco use LIFETIME NON TOBACCO USER 10/20/2013 NEVER SMOKED. Mary DELACRUZ [facility] History of tobacco use LIFETIME NON TOBACCO USER 06/20/2013 NEVER SMOKED. Mary DELACRUZ [facility] History of tobacco use LIFETIME NON TOBACCO USER 05/05/2013 Mary DELACRUZ [facility] History of tobacco use LIFETIME NON TOBACCO USER 03/11/2013 Mary DELACRUZ [facility] History of tobacco use LIFETIME NON TOBACCO USER 03/10/2013 Mary DELACRUZ [facility] History of tobacco use LIFETIME NON TOBACCO USER 02/23/2013 Mary DELACRUZ [facility] History of tobacco use LIFETIME NON TOBACCO USER 12/27/2012 Mary DELACRUZ [facility] History of tobacco use LIFETIME NON TOBACCO USER 11/30/2012 Mary DELACRUZ [facility] History of tobacco use LIFETIME NON TOBACCO USER 11/06/2012 Mary DELACRUZ [facility] History of tobacco use LIFETIME NON TOBACCO USER 07/26/2012 Mary DELACRUZ [facility] History of tobacco use LIFETIME NON TOBACCO USER 07/17/2012 Mary DELACRUZ [facility] History of tobacco use LIFETIME NON TOBACCO USER 03/22/2012 Mary DELACRUZ [facility] History of tobacco use LIFETIME NON TOBACCO USER 09/05/2011 Mary DELACRUZ [facility] History of tobacco use LIFETIME NON TOBACCO USER 05/15/2011 Mary DELACRUZ [facility] History of tobacco use LIFETIME NON TOBACCO USER 04/08/2011 Mary DELACRUZ [facility] History of tobacco use LIFETIME NON TOBACCO USER 02/21/2011 Mary DELACRUZ [facility] History of tobacco use LIFETIME NON TOBACCO USER 01/21/2011 Mary DELACRUZ [facility] History of tobacco use LIFETIME NON TOBACCO USER 07/09/2010 Mary DELACRUZ [facility] History of tobacco use LIFETIME NON TOBACCO USER 12/07/2009 never smoked!!! Mary DELACRUZ [facility] History of tobacco use LIFETIME NON TOBACCO USER 05/15/2009 Mary DELACRUZ [facility] History of tobacco use LIFETIME NON TOBACCO USER 07/14/2008 Mary DELACRUZ [facility] History of tobacco use LIFETIME NON TOBACCO USER 03/26/2007 Mary DELACRUZ [facility] History of tobacco use LIFETIME NON TOBACCO USER 05/28/2006 Mary DELACRUZ [facility] History of tobacco use LIFETIME NON TOBACCO USER 05/13/2005 Mary DELACRUZ [facility] History of tobacco use LIFETIME NON TOBACCO USER 06/03/2004 Mary DELACRUZ [facility] History of tobacco use LIFETIME NON TOBACCO USER 05/31/2003 Mary DELACRUZ [facility] Advance Directives List of completed, amended, or rescinded Advance Directives on record at Department of [facility] facilities. An actual copy of the Directive is not included. Date Advance Directive Provider Source 03/14/2013 ADVANCE DIRECTIVE DISCUSSION EFREN ALEMAN [facility] 03/14/2013 ADVANCE DIRECTIVE MELLISSA AVALOS [facility] 11/05/2012 ADVANCE DIRECTIVE DISCUSSION VIRY PUCKETT [facility] 02/27/2011 ADVANCE DIRECTIVE DISCUSSION CATRACHITA GAUTAM [facility] 01/16/2011 ADVANCE DIRECTIVE DISCUSSION VIRY PUCKETT [facility] 01/06/2011 ADVANCE DIRECTIVE DISCUSSION STEFANY MATTHEW [facility]
== END 2024-06-15 16:29 | disposition home or self-care (01) ==
PROVIDERS: PCP Family Medicine; Visit Provider Family Medicine
DX: H91.90 Unspecified hearing loss, unspecified ear (principal); M54.9 Dorsalgia, unspecified; E11.9 Type 2 diabetes mellitus without complications; K21.9 Gastro-esophageal reflux disease without esophagitis; I25.2 Old myocardial infarction; R01.1 Cardiac murmur, unspecified; I25.10 Atherosclerotic heart disease of native coronary artery without angina pectoris; Z87.19 Personal history of other diseases of the digestive system; H61.20 Impacted cerumen, unspecified ear; E78.5 Hyperlipidemia, unspecified; I10 Essential (primary) hypertension; M45.9 Ankylosing spondylitis of unspecified sites in spine; D48.5 Neoplasm of uncertain behavior of skin; Z00.00 Encounter for general adult medical examination without abnormal findings

== ENCOUNTER → 2024-06-15 15:00 | Outpatient (BNVA) | payer MEDICARE, SELFPAY | PROVIDERS: PCP Family Medicine; Visit Provider Family Medicine | DX: I10 Essential (primary) hypertension (principal); M54.9 Dorsalgia, unspecified; E11.9 Type 2 diabetes mellitus without complications; K21.9 Gastro-esophageal reflux disease without esophagitis; I25.2 Old myocardial infarction; R01.1 Cardiac murmur, unspecified; I25.10 Atherosclerotic heart disease of native coronary artery without angina pectoris; H61.20 Impacted cerumen, unspecified ear; E78.5 Hyperlipidemia, unspecified; D48.5 Neoplasm of uncertain behavior of skin | CPT/HCPCS: 96127; 99202 ==

== ENCOUNTER 2024-06-20 07:31 | Outpatient (REF) | payer MEDICARE, SELFPAY ==
--- OUTSIDE RECORDS SUMMARY | 2024-06-20 07:34 | XMS_ITS | Continuity of Care Document ---
Author Name [facility] Organization [facility] Care Team Providers Care Pelota Maker Name Role Phone [facility] Unavailable Unavailable Problems Combined list of problems from Department of Defense and Veterans Affairs facilities. It does not include entries that were removed or entered in error. Problem Status Onset Date Problem Type Date of Resolution Comments Source Allergic rhinitis Active Condition [place] Angina Pectoris * (ICD-9-CM 413.9) Active Condition Mary [facility] Ankylosing spondylitis Active Condition [facility] Ankylosing Spondylitis * (ICD-9-CM 720.0) Active Condition Mary [facility] Anxiety Active Condition [place] Anxiety (SNOMED [place] [id number]) Active Condition [facility] Anxiety disorder Active Condition [facility] Arthritis Active Condition [facility] [place] Bilateral sensory hearing loss Active Condition [place] CAD/ASHD UNSP VSL Active Condition [facility] Chest Pain * (ICD-9-CM 786.50) Active Condition [facility] Colonoscopy Screening Active Condition [facility] Depression * (ICD-9-CM 300.4/311.) Active Condition [facility] Dermatitis * (ICD-9-CM 692.9) Active Condition [facility] Diabetes mellitus Active Condition Mary [facility] Epidermal Cyst * (ICD-9-CM 706.2) Active Condition [facility] Essential hypertension Active Condition [place] Gastroesophageal reflux disease Active Condition [facility] GERD * (ICD-9-CM 530.81) Active Condition Mary [facility] Hearing loss * (ICD-9-CM 389.9) Active Condition C.Abrahan [facility] Hemorrhoids Active Condition [facility] Hernia of abdominal wall Active Condition [place] History of myocardial infarction Active Condition Mar 27, 2017 Entered By: CARMELINA CHRISTIANSON Comment: Hx [facility] w/Stent 06/16/16Mar 27, 2017 Entered By: CARMELINA CHRISTIANSON Comment: Hx [facility] w/6 stents 2004 [facility] History of pancreatitis Active Condition Mar 27, 2017 Entered By: CARMELINA CHRISTIANSON Comment: 2013 [facility] Hyperlipidemia Active Condition [facility] HYPERLIPIDEMIA Active Condition C.Abrahan [facility] Hypertension Active Condition [facility] HYPERTENSION,UNSPEC Active Condition Martha [facility] Impacted cerumen * (ICD-9-CM 380.4) Active Condition Mary [facility] 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 Mar 25, 2017 Entered By: CARMELINA CHRISTIANSON Comment: EF 40-45% [facility] Lipoma Active Condition [place] Major Depressive Disorder, Single Episode, in Full Remission Active Condition [facility] VA,HX Active Condition Mary [facility] Multi vessel coronary artery disease Active Condition [place] Obesity Active Condition [place] Obesity * (ICD-9-CM 278.00) Active Condition Mary [facility] Other disorders of skin and subcutaneous tissue (ICD-9-CM 709.9) Active Condition [facility] Pain in joint involving shoulder region (ICD-9-CM 719.41) Active Condition [facility] Peripheral vascular disease Active Condition [facility] [place] [facility] Primary Care Provider Active Condition May 12, 2022 Entered By: JORDAN HIGGINBOTHAM Comment: Dr Marlen Romo [facility] Rhinitis * (ICD-9-CM 472.0) Active Condition [facility] S/P PTCA Active Condition Mary [facility] Tinnitus Active Condition [place] Type 2 diabetes mellitus [facility] Diagnosis: ICD-10-CM I10 Essential (primary) hypertension Active Diagnosis [place] Diagnosis: ICD-10-CM I51.9 Heart disease, unspecified Active Diagnosis [place] Medications Combined list of outpatient medications from Department of Defense and Veterans Affairs facilities.Medications provided include 1) outpatient medications from the last 15 months, and 2) patient-reported medications. Medication Details Route Status Patient Instructions Prescription Expires Prescription Number Last Dispense Date Ordering Provider Order Date Order Qty Source ALPRAZOLAM 0.25MG TAB TAKE ONE TABLET BY MOUTH ORAL ACTIVE TYRON FUENTES MD 2014 [place] ALPRAZOLAM 0.5MG TAB TAKE ONE TABLET BY MOUTH ORAL ACTIVE IRAM CHRISTIANSON SA 2019 [place] ASPIRIN 81MG TAB,EC ORAL ACTIVE MARCE SCHUSTER CQUELINE 2012 [facility] ASPIRIN 81MG TAB,EC TAKE ONE TABLET BY MOUTH ORAL ACTIVE IRAM CHRISTIANSON SA 2016 [place] ASPIRIN 81MG TAB,EC TAKE (DO NOT CRUSH) ONE TABLET BY MOUTH EVERY DAY ORAL ACTIVE TYRON FUENTES MD 2014 [place] BUSPIRONE TAB TAKE 7.5MG BY MOUTH TWICE A DAY ORAL ACTIVE TYRON FUENTES MD 2014 [place] CHOLECALCIF RICHARD 25MCG (1,000UNIT) TAB TAKE ONE TABLET BY MOUTH DAILY ORAL ACTIVE MARCE SCHUSTER CQUELINE 2012 Mary [facility] CLOPIDOGREL BISULFATE 75MG TAB TAKE ONE TABLET BY MOUTH ORAL ACTIVE IRAM CHRISTIANSON SA ROSA 2016 [place] FAMOTIDINE 40MG TAB TAKE ONE TABLET BY MOUTH ONCE DAILY NEEDED ORAL ACTIVE IRAM CHRISTIANSON SA 2021 [facility] [place] [facility] FLUTICASONE NASAL SOLN,NASAL INSTILL INTO EACH NOSTRIL NASAL ACTIVE IRAM CHRISTIANSON SA 2016 [place] GLIPIZIDE 2.5MG TAB,SA TAKE ONE TABLET BY MOUTH ONCE DAILY ORAL ACTIVE IRAM CHRISTIANSON SA 2021 [facility] LISINOPRIL 10MG TAB TAKE ONE TABLET BY MOUTH EVERY DAY ORAL ACTIVE TYRON FUENTES MD 2014 [place] METOPROLOL TARTRATE 50MG TAB TAKE ONE TABLET BY MOUTH TWICE A DAY ORAL ACTIVE TYRON FUENTES MD 2014 [place] METOPROLOL TARTRATE 50MG TAB TAKE ONE TABLET BY MOUTH TWICE DAILY ORAL ACTIVE IRAM CHRISTIANSON SA 2024 [facility] IELD NITROGLYCER IN 0.4MG TAB,SUBLING UAL DISSOLVE UNDER THE TONGUE EVERY 5 MINUTES NEEDED SUBLIN GUAL ACTIVE IRAM CHRISTIANSON SA 2016 [place] NITROGLYCER IN 0.4MG TAB,SUBLING UAL DISSOLVE ONE TABLET UNDER THE TONGUE NOW, IF NO RELIEF IN 5 MINUTES CALL 911. SUBLIN GUAL ACTIVE TYRON FUENTES MD 2014 [place] ROSUVASTATI N [place] 40MG TAB TAKE ONE TABLET BY MOUTH ORAL ACTIVE RA KELLY PIERRE 2022 [facility] SPIRONOLACT ONE 25MG TAB TAKE ONE TABLET BY MOUTH ONCE DAILY ORAL ACTIVE IRAM CHRISTIANSON SA 2021 [facility] Allergies, Adverse Reactions, Alerts Combined list of allergies from Department of Defense and Veterans Affairs facilities. It does not include entries that were removed or entered in error. Substance Category Reaction Severity Reaction type Status Date Reported Comments Source LOVASTATIN Propensity to adverse reactions to drug (finding) active 5 [facility] PENICILLIN Propensity to adverse reactions to drug (finding) NAUSEA,VO MITING, Fever active 4 Mary [facility] PENICILLIN Propensity to adverse reactions to drug (finding) active 7 [facility] [place] [facility] SIMVASTATIN Propensity to adverse reactions to drug (finding) active 5 [facility] ZOCOR Propensity to adverse reactions to drug (finding) active 8 [facility] Immunizations Combined list of available immunizations from the Department of Defense and Veterans Affairs facilities. Immunization Series Date Given Administered By Site Reaction Lot Number CVX Code Drug Vertical Punch Operator Status Comments Source INFLUENZA, HIGH-DOSE, TRIVALENT, PF 2024 ALEJANDRA HIGGINBOTHAM ON M LEFT DELTO ID [id number] 135 complet ed [place] COVID-19 (MODERNA), MRNA, LNP-S, PF, 50 MCG/0.5 ML (AGES 12+ YEARS) 2023 ALEJANDRA HIGGINBOTHAM ON M LEFT DELTO ID [id number] 312 complet ed [place] INFLUENZA, UNSPECIFIED FORMULATION 2021 88 complet ed [facility] COVID-19 (MODERNA), MRNA, LNP-S, PF, 100 MCG OR 50 MCG DOSE 3 2021 207 complet ed MOD; [id number]; 2 [place] COVID-19 (MODERNA), MRNA, LNP-S, PF, 100 MCG/0.5 ML DOSE 2 2020 207 complet ed MOD; [id number]; 1 [place] COVID-19 (MODERNA), MRNA, LNP-S, PF, 100 MCG/0.5 ML DOSE 1 2020 207 complet ed MOD; [id number]; 1 [place] INFLUENZA, UNSPECIFIED FORMULATION 2019 88 complet ed [facility] [place] [facility] INFLUENZA, SEASONAL, INJECTABLE 2017 141 complet ed cvs [facility] INFLUENZA, SEASONAL, INJECTABLE 2016 141 complet ed non va [facility] TDAP 2016 115 complet ed Given by his PCP ,Vet will provide documenta tion. [facility] [place] [facility] PNEUMOCOCCAL CONJUGATE PCV 13 2014 133 complet ed [place] FLU,3 YRS (HISTORICAL) 2014 88 complet ed Community PCP [facility] DTAP, UNSPECIFIED FORMULATION 2014 107 complet ed [place] TET-DIP-A/PER TUSSIS (HISTORICAL) 2014 NONE 139 complet ed [place] FLU,3 YRS (HISTORICAL) 2013 88 complet ed Community provider [facility] INFLUENZA, UNSPECIFIED FORMULATION 2012 88 complet ed [facility] INFLUENZA, UNSPECIFIED FORMULATION 2011 NONE 88 complet ed Left Deltoid (IM) C.WCristi [facility] INFLUENZA, UNSPECIFIED FORMULATION 2010 88 complet ed does not remember the date Mary [facility] INFLUENZA, UNSPECIFIED FORMULATION 2008 NONE 88 complet ed Left Deltoid (IM) C.Abrahan [facility] NOVEL INFLUENZA-H1N 1-09, ALL FORMULATIONS 2008 128 complet ed [employer] C.WCristi [facility] INFLUENZA, UNSPECIFIED FORMULATION 2006 NONE 88 complet ed Left Deltoid (IM), Lot Number:[id number] 10/30 Mary [facility] FLU,3 YRS (HISTORICAL) 2006 DARELL ZENDEJAS 88 complet ed C.bArahan [facility] FLU,3 YRS (HISTORICAL) 2004 SCOTT VANG 88 complet ed C.WCristi [facility] PNEUMOCOCCAL (HISTORICAL) 2004 109 complet ed Right Deltoid (IM), Lot Number: [id number] ex. 09-16-06 Mary [facility] FLU,3 YRS (HISTORICAL) 2003 BRITT RODRIGUEZ 88 complet ed [place].Abrahan [facility] TETANUS TOXOID, UNSPECIFIED FORMULATION 2003 112 complet ed Left Deltoid lot#[id number] AA ex 11/26 [facility] Vital Signs Combined list of inpatient and outpatient Vital Signs from Department of Defense and Veterans Affairs, ranging from 12 months to all on record, depending upon the facility. Vital Sign Value Date Comments Source SYSTOLIC BLOOD PRESSURE 174 05/27/19 25 10:45:11 [facility] DIASTOLIC BLOOD PRESSURE 80 025 10:45:11 [facility] PULSE OXIMETRY 97 05/27/2024 10:45:11 [facility] [id number] 04/21 [facility] En[facility] [id number] 05/27 [facility] [place] [facility] O/P EST MOD 30 MIN [id number] Diagnos is: ICD-10- CM I51.9 Heart disease , unspeci fied
SAEID CHRISTIANSON 05/27 [place] [facility] En[facility] [id number] 05/27 [facility] [place] [facility] O/P EST LOW 20 MIN [id number] Diagnos is: ICD-10- CM I10 Essenti al (primar y) hyperte nsion<b r/> SAEID CHRISTIANSON 05/27 [facility] [place] Social History Combined list of available smoking, tobacco, and other social history from Department of Defense and Veterans Affairs facilities. Social History Type Response Date Comment Source Tobacco smoking status [facility]-TOBACCO NEVER USED 05/27/2023 [place] History of tobacco use [facility]-TOBACCO NEVER USED 05/12/2022 [place] History of tobacco use MS-TOBACCO NEVER USED 05/30/2021 [place] History of tobacco use MS-TOBACCO NEVER USED 04/30/2020 [facility] [place] [facility] History of tobacco use MS-TOBACCO NEVER USED 11/08/2018 [place] History of tobacco use MS-TOBACCO NEVER USED 04/27/2018 [place] History of tobacco use LIFETIME NON-TOBACCO USER 03/25/2017 [facility] [place] [facility] History of tobacco use LIFETIME NON-TOBACCO USER 11/19/2015 [place] History of tobacco use LIFETIME NON-TOBACCO USER 08/30/2014 [place] History of tobacco use LIFETIME NON TOBACCO USER 10/20/2013 NEVER SMOKED. Mary [facility] History of tobacco use LIFETIME NON TOBACCO USER 06/20/2013 NEVER SMOKED. aMry [facility] History of tobacco use LIFETIME NON TOBACCO USER 05/05/2013 Mary [facility] History of tobacco use LIFETIME NON TOBACCO USER 03/11/2013 Mary [facility] History of tobacco use LIFETIME NON TOBACCO USER 03/10/2013 Mary [facility] History of tobacco use LIFETIME NON TOBACCO USER 02/23/2013 Mary [facility] History of tobacco use LIFETIME NON TOBACCO USER 12/27/2012 Mary [facility] History of tobacco use LIFETIME NON TOBACCO USER 11/30/2012 Mary [facility] History of tobacco use LIFETIME NON TOBACCO USER 11/06/2012 Mary [facility] History of tobacco use LIFETIME NON TOBACCO USER 07/26/2012 Mary [facility] History of tobacco use LIFETIME NON TOBACCO USER 07/17/2012 Mary [facility] History of tobacco use LIFETIME NON TOBACCO USER 03/22/2012 Mary [facility] History of tobacco use LIFETIME NON TOBACCO USER 09/05/2011 Mary [facility] History of tobacco use LIFETIME NON TOBACCO USER 05/15/2011 Mary [facility] History of tobacco use LIFETIME NON TOBACCO USER 04/08/2011 Mary [facility] History of tobacco use LIFETIME NON TOBACCO USER 02/21/2011 Mary [facility] History of tobacco use LIFETIME NON TOBACCO USER 01/21/2011 Mary [facility] History of tobacco use LIFETIME NON TOBACCO USER 07/09/2010 Mary [facility] History of tobacco use LIFETIME NON TOBACCO USER 12/07/2009 never smoked!!! Mary [facility] History of tobacco use LIFETIME NON TOBACCO USER 05/15/2009 Mary [facility] History of tobacco use LIFETIME NON TOBACCO USER 07/14/2008 Mary [facility] History of tobacco use LIFETIME NON TOBACCO USER 03/26/2007 Mary [facility] History of tobacco use LIFETIME NON TOBACCO USER 05/28/2006 Mary [facility] History of tobacco use LIFETIME NON TOBACCO USER 05/13/2005 Mary [facility] History of tobacco use LIFETIME NON TOBACCO USER 06/03/2004 Mary [facility] History of tobacco use LIFETIME NON TOBACCO USER 05/31/2003 Mary [facility] Advance Directives List of completed, amended, or rescinded Advance Directives on record at Department of [facility] facilities. An actual copy of the Directive is not included. Date Advance Directive Provider Source 03/14/2013 ADVANCE DIRECTIVE DISCUSSION EFREN ALEMAN [facility] 03/14/2013 ADVANCE DIRECTIVE MELLISSA AVALOS [facility] 11/05/2012 ADVANCE DIRECTIVE DISCUSSION VIRY PUCKETT [facility] 02/27/2011 ADVANCE DIRECTIVE DISCUSSION CATRACHITA GAUTAM [facility] 01/16/2011 ADVANCE DIRECTIVE DISCUSSION VIRY PUCKETT [facility] 01/06/2011 ADVANCE DIRECTIVE DISCUSSION STEFANY MATTHEW [facility]
[2024-06-20 11:26] LABS: MANUAL DIFF FLAG NO
[2024-06-20 11:33] LABS: Appearance Urine Clear; Color Urine Yellow; Glucose Urine UA Negative (Negative); Leukocyte Esterase Urine Negative (Negative); Nitrite Urine Negative (Negative); PH 5.5 (5.0-9.0); Urine Blood Negative (Negative); Urine Ketones Negative (Negative); Urine Protein Trace mg/dL (Neg-Trace)
[2024-06-20 11:35] LABS: Basophils Absolute Auto 0.1 X10*3/uL (0.0-0.2); Basophils Percent Auto 0.9 % (0-2); Eosinophils Absolute Auto 0.1 X10*3/uL (0.0-0.4); Eosinophils Percent Auto 1.5 % (0-4); Hemoglobin 15.3 g/dl (14.0-18.0); Imm Gran Abs Auto 0.05 X10*3/uL (0.00-0.03); Imm Gran Pct Auto 0.6 % (0.0-0.4); Lymphocytes Absolute Auto 2.4 X10*3/uL (1.2-4.9); Lymphocytes Percent Auto 29.5 % (20-40); Mean Corpuscular HGB Conc 33.3 g/dl (31.0-36.0); Mean Corpuscular Hemoglobin 30.1 pg (27.0-33.0); Mean Corpuscular Volume 90.6 fL (80.0-98.0); Mean Platelet Volume 11.9 fL (9.4-12.4); Monocytes Absolute Auto 0.8 X10*3/uL (0.1-1.2); Monocytes Percent Auto 9.6 % (2-11); Neutrophils Absolute Auto 4.7 x10*3/uL (2.0-8.3); Neutrophils Percent Auto 57.9 % (45-73); Platelet Count 170 X10*3/uL (160-400); Red Blood Count 5.08 X10*6/uL (4.60-5.80); Red Cell Distribution Width 13.5 % (11.0-16.0)
[2024-06-20 11:47] LABS: Estimated Average Glucose 126 mg/dL; Hemoglobin A1C 170.7736 umol/L; Total Hemoglobin (HGBA1C) 4010.5116 umol/L
[2024-06-20 12:00] LABS: Erythrocyte Sedimentation Rate 6 MM/HR (0-15)
[2024-06-20 12:03] LABS: Creatinine Urine 109.79 mg/dL; Microalbum/Creatinine Ratio Ur 27.3 ug/mg cr (<30)
[2024-06-20 12:08] LABS: Alanine Aminotransferase 31 U/L (0-40); Albumin Level 3.9 g/dL (3.5-5.0); Alkaline Phosphatase 86 U/L (39-117); Anion Gap 9 (12-20); Aspartate Amino Transferase 35 U/L (5-37); Bilirubin Total 0.7 mg/dL (0.0-1.0); Blood Urea Nitrogen 22 mg/dL (9-16); Calcium 9.7 mg/dL (8.4-10.2); Carbon Dioxide 27 mmol/L (22-29); Chloride 107 mmol/L (96-108); Cholesterol 110 mg/dL (<200); Estimated Glomerular Filt Rate > 60; Glucose Fasting 124 mg/dL (60-99); HDL Cholesterol 37 mg/dL (>40); LDL Cholesterol Calculated 42 mg/dL (<100); Potassium 3.7 mmol/L (3.3-5.1); Sodium 139 mmol/L (135-145); Total Protein 6.9 g/dL (6.5-8.0); Triglycerides 156 mg/dL (<150)
[2024-06-20 12:11] LABS: Prostate Specific Antigen Scr 3.25 ng/mL (<0.05-4.0)
[2024-06-20 12:18] LABS: TSH reflex Free T4 3.03 uIU/mL (0.32-4.0)
[2024-06-21 08:28] LABS: CRP High Sensitivity 0.6 mg/L
== END 2024-06-20 07:32 | disposition home or self-care (01) ==
LOC: HO.WFDLDS 07:31
PROVIDERS: Visit Provider Family Medicine
DX: Z00.00 Encounter for general adult medical examination without abnormal findings (principal); M45.9 Ankylosing spondylitis of unspecified sites in spine; Z12.5 Encounter for screening for malignant neoplasm of prostate; I10 Essential (primary) hypertension; R73.01 Impaired fasting glucose; D48.5 Neoplasm of uncertain behavior of skin
CPT/HCPCS: 36415; 80053; 80061; 81003; 82043; 82570; 83036; 84153; 84443; 85025; 85652; 86141

== ENCOUNTER 2025-01-06 07:43 | Outpatient (REF) | payer MEDICARE, SELFPAY ==
--- OUTSIDE RECORDS SUMMARY | 2025-01-06 02:45 | XMS_ITS | Continuity of Care Document ---
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 It does not include entries that were removed or entered in error. Problem Status Onset Date Problem Type Date of Resolution Comments Source Allergic rhinitis Active Condition [place] Angina Pectoris * (ICD-9-CM 413.9) Active Condition [facility] Ankylosing spondylitis Active Condition [facility] Ankylosing Spondylitis * (ICD-9-CM 720.0) Active Condition [facility] Anxiety Active Condition [place] Anxiety (SNOMED CT 80349127) Active Condition [facility]xiety disorder Active Condition [facility] Arthritis Active Condition [facility] Bilateral sensory hearing loss Active Condition [place] CAD/ASHD UNSP VSL Active Condition [facility] Chest Pain * (ICD-9-CM 786.50) Active Condition [facility] Colonoscopy Screening Active Condition [facility] Depression * (ICD-9-CM 300.4/311.) Active Condition [facility] Dermatitis * (ICD-9-CM 692.9) Active Condition [facility] Diabetes mellitus Active Condition [facility] Epidermal Cyst * (ICD-9-CM 706.2) Active Condition [facility] Essential hypertension Active Condition [place] Gastroesophageal reflux disease Active Condition [facility] RY GERD * (ICD-9-CM 530.81) Active Condition [facility] Hearing loss * (ICD-9-CM 389.9) Active Condition C.Abrahan [facility] Hemorrhoids Active Condition [facility] Hernia of abdominal wall Active Condition [place] History of myocardial infarction Active Condition Mar 27, 2017 Entered By: CARMELINA CHRISTIANSON Comment: Hx NC w/Stent 06/16/16Mar 27, 2017 Entered By: CARMELINA CHRISTIANSON Comment: Hx NC w/6 stents 2004 [facility] History of pancreatitis Active Condition Mar 27, 2017 Entered By: CARMELINA CHRISTIANSON Comment: 2013 [facility] Hyperlipidemia Active Condition [facility] HYPERLIPIDEMIA Active Condition [facility]Abrahan [facility]pertension Active Condition [facility] HYPERTENSION,UNSPEC Active Condition Martha [facility] Impacted cerumen * (ICD-9-CM 380.4) Active Condition [facility] 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 Mar 25, 2017 Entered By: CARMELINA CHRISTIANSON Comment: EF 40-45% [facility] Lipoma Active Condition [place] Major Depressive Disorder, Single Episode, in Full Remission Active Condition [facility] NC,HX Active Condition [facility] Multi vessel coronary artery disease Active Condition [place] Obesity Active Condition [place] Obesity * (ICD-9-CM 278.00) Active Condition [facility] Other disorders of skin and subcutaneous tissue (ICD-9-CM 709.9) Active Condition [facility] Pain in joint involving shoulder region (ICD-9-CM 719.41) Active Condition [facility] Peripheral vascular disease Active Condition [facility] [place] [facility] Primary Care Provider Active Condition May 12, 2022 Entered By: JORDAN HIGGINBOTHAM Comment: Dr Marlen Romo [place] [facility] Rhinitis * (ICD-9-CM 472.0) Active Condition [facility] S/P PTCA Active Condition [facility] Tinnitus Active Condition [place] Type 2 diabetes mellitus [facility] [place] Diagnosis: ICD-10-CM I10 Essential (primary) hypertension Active Diagnosis [place] Medications Combined list of outpatient medications from Department of Defense and [facility] facilities.Medications provided include 1) outpatient medications from the last 15 months, and 2) patient-reported medications. Medication Details Route Status Patient Instructions Prescription Expires Prescription Number Last Dispense Date Ordering Provider Order Date Order Qty Source ALPRAZOLAM 0.25MG TAB TAKE ONE TABLET BY MOUTH ORAL ACTIVE TYRNO FUENTES MD 2014 [place] ALPRAZOLAM 0.5MG TAB TAKE ONE TABLET BY MOUTH ORAL ACTIVE IRAM CHRISTIANSON SA 2019 [place] ASPIRIN 81MG TAB,EC ORAL ACTIVE MCGOFFJA CQUELINE 2012 [facility] ASPIRIN 81MG TAB,EC TAKE ONE TABLET BY MOUTH ORAL ACTIVE IRAM CHRISTIANSON SA 2016 [place] ASPIRIN 81MG TAB,EC TAKE (DO NOT CRUSH) ONE TABLET BY MOUTH EVERY DAY ORAL ACTIVE TYRON FUENTES MD 2014 [place] BUSPIRONE TAB TAKE 7.5MG BY MOUTH TWICE A DAY ORAL ACTIVE TYRON FUENTES MD 2014 [place] CHOLECALCIF RICHARD 25MCG (1,000UNIT) TAB TAKE ONE TABLET BY MOUTH DAILY ORAL ACTIVE MEDOFFMARCE CQUELINE 2012 [facility] CLOPIDOGREL BISULFATE 75MG TAB TAKE ONE TABLET BY MOUTH ORAL ACTIVE IRAM CHRISTIANSON SA 2016 [place] FAMOTIDINE 40MG TAB TAKE ONE TABLET BY MOUTH ONCE DAILY NEEDED ORAL ACTIVE IRAM CHRISTIANSON SA 2021 [facility] [place] [facility] FLUTICASONE NASAL SOLN,NASAL INSTILL INTO EACH NOSTRIL NASAL ACTIVE IRAM CHRISTIANSON SA 2016 [place] GLIPIZIDE 2.5MG TAB,SA TAKE ONE TABLET BY MOUTH ONCE DAILY ORAL ACTIVE IRAM CHRISTIANSON SA 2021 [facility] [place] [facility] LISINOPRIL 10MG TAB TAKE ONE TABLET BY MOUTH EVERY DAY ORAL ACTIVE TYRON FUENTES MD 2014 [place] METOPROLOL TARTRATE 50MG TAB TAKE ONE TABLET BY MOUTH TWICE A DAY ORAL ACTIVE TYRON FUENTES MD 2014 [place] METOPROLOL TARTRATE 50MG TAB TAKE ONE TABLET BY MOUTH TWICE DAILY ORAL ACTIVE IRAM CHRISTIANSON SA ROSA 2024 [facility] IELD NITROGLYCER IN 0.4MG TAB,SUBLING UAL DISSOLVE UNDER THE TONGUE EVERY 5 MINUTES NEEDED SUBLIN GUAL ACTIVE IRAM CHRISTIANSON SA ROSA 2016 [place] NITROGLYCER IN 0.4MG TAB,SUBLING UAL DISSOLVE ONE TABLET UNDER THE TONGUE NOW, IF NO RELIEF IN 5 MINUTES CALL 911. SUBLIN GUAL ACTIVE TYRON FUENTES MD 2014 [place] ROSUVASTATI N CA 40MG TAB TAKE ONE TABLET BY MOUTH ORAL ACTIVE RA KELLY PIERRE 2022 [facility] SPIRONOLACT ONE 25MG TAB TAKE ONE TABLET BY MOUTH ONCE DAILY ORAL ACTIVE IRAM CHRISTIANSON SA 2021 [facility] Allergies, Adverse Reactions, Alerts Combined list of allergies from Department of Defense and Veterans Affairs facilities. It does not include entries that were removed or entered in error. Substance Category Reaction Severity Reaction type Status Date Reported Comments Source LOVASTATIN Propensity to adverse reactions to drug (finding) active 5 [facility] PENICILLIN Propensity to adverse reactions to drug (finding) NAUSEA,VO MITING, Fever active 4 [facility] PENICILLIN Propensity to adverse reactions to drug (finding) active 7 [facility] [place] [facility] SIMVASTATIN Propensity to adverse reactions to drug (finding) active 5 [facility] ZOCOR Propensity to adverse reactions to drug (finding) active 8 [facility] Immunizations Combined list of available immunizations from the Department of Defense and Veterans Affairs facilities. Immunization Series Date Given Administered By Site Reaction Lot Number CVX Code Drug Domestic Violence Advocate Status Comments Source INFLUENZA, HIGH-DOSE, TRIVALENT, PF 2024 ALEJANDRA HIGGINBOTHAM ON M LEFT DELTO ID [id number] 135 complet ed Booster for Series, ADMINISTE RED AT [facility] IELD COVID-19 (MODERNA), MRNA, LNP-S, PF, 50 MCG/0.5 ML (AGES 12+ YEARS) 2023 ALEJANDRA HIGGINBOTHAM ON M LEFT DELTO ID [id number] 312 complet ed Booster for Series, ADMINISTE [place] AT [place], [facility] IELD INFLUENZA, UNSPECIFIED FORMULATION 2021 88 complet ed HISTORICA L INFORMATI ON - SOURCE UNSPECIFI ED, [place] [facility] COVID-19 (MODERNA), MRNA, LNP-S, PF, 100 MCG OR 50 MCG DOSE 3 2021 207 complet ed MOD; [id number]; 2 [facility] IELD COVID-19 (MODERNA), MRNA, LNP-S, PF, 100 MCG/0.5 ML DOSE 2 2020 207 complet ed MOD; [id number]; 1 [facility] IELD COVID-19 (MODERNA), MRNA, LNP-S, PF, 100 MCG/0.5 ML DOSE 1 2020 207 complet ed MOD; [id number]; 1 [facility] IELD INFLUENZA, UNSPECIFIED FORMULATION 2019 88 complet ed [place] [facility] INFLUENZA, SEASONAL, INJECTABLE 2017 141 complet ed cvs [facility] INFLUENZA, SEASONAL, INJECTABLE 2016 141 complet ed non va [facility] TDAP 2016 115 complet ed Given by his PCP ,Vet will provide documenta tion. [facility] PNEUMOCOCCAL CONJUGATE PCV 13 2014 133 complet ed [place] FLU,3 YRS (HISTORICAL) 2014 88 complet ed [facility] PCP [facility] DTAP, UNSPECIFIED FORMULATION 2014 107 complet ed [place] TET-DIP-A/PER TUSSIS (HISTORICAL) 2014 NONE 139 complet ed Booster for Leigh, [facility] FLU,3 YRS (HISTORICAL) 2013 88 complet ed Community provider [facility] INFLUENZA, UNSPECIFIED FORMULATION 2012 88 complet ed C.WCristi [facility] FLU,3 YRS (HISTORICAL) 2011 88 complet ed [place].Abrahan [facility] INFLUENZA, UNSPECIFIED FORMULATION 2010 88 complet ed C.WCristi [facility] INFLUENZA, UNSPECIFIED FORMULATION 2008 NONE 88 complet ed Left Deltoid (IM) C.WCristi [facility] NOVEL INFLUENZA-H1N 1-09, ALL FORMULATIONS 2008 128 complet ed [employer] C.WCristi [facility] INFLUENZA, UNSPECIFIED FORMULATION 2006 NONE 88 complet ed Left Deltoid (IM), Lot Number:[id number] 10/30 Mary [facility] FLU,3 YRS (HISTORICAL) 2006 DARELL ZENDEJAS 88 complet ed C.WCristi [facility] FLU,3 YRS (HISTORICAL) 2004 SCOTT VANG 88 complet ed C.WCristi [facility] PNEUMOCOCCAL (HISTORICAL) 2004 109 complet ed Right Deltoid (IM), Lot Number: [id number] ex. 09-16-06 [facility] INFLUENZA, UNSPECIFIED FORMULATION 2003 88 complet ed [place].WCristi [facility] TETANUS TOXOID, UNSPECIFIED FORMULATION 2003 112 complet ed Left Deltoid lot#[id number] AA ex 11/26 Mary [facility] Vital Signs Combined list of inpatient and outpatient Vital Signs from Department of Defense and Veterans Affairs, ranging from 12 months to all on record, depending upon the facility. Vital Sign Value Date Comments Source SYSTOLIC BLOOD PRESSURE 174 05/27/19 25 10:45:11 [facility] DIASTOLIC BLOOD PRESSURE 80 025 10:45:11 [facility] PULSE OXIMETRY 97 05/27/2024 10:45:11 [facility] Out[facility] En[facility] [id number] 05/27 [facility] [place] [facility] O/P EST LOW 20 MIN [id number] Diagnos is: ICD-10- CM I10 Essenti al (primar y) hyperte nsion SAEID CHRISTIANSON 05/27 [facility] IELD Social History Combined list of available smoking, tobacco, and other social history from Department of Defense and Veterans Affairs facilities. Social History Type Response Date Comment Source Tobacco smoking status [place] [facility]-TOBACCO NEVER USED 05/27/2023 [place] History of tobacco use [place]-TOBACCO NEVER USED 05/12/2022 [place] History of tobacco use VA-TOBACCO NEVER USED 05/30/2021 [place] History of tobacco use VA-TOBACCO NEVER USED 04/30/2020 [facility] History of tobacco use [place]-TOBACCO NEVER USED 11/08/2018 [place] History of tobacco use VA-TOBACCO NEVER USED 04/27/2018 [place] History of tobacco use LIFETIME NON-TOBACCO USER 03/25/2017 [place] [facility] [place] [facility] History of tobacco use LIFETIME NON-TOBACCO USER 11/19/2015 [place] History of tobacco use LIFETIME NON-TOBACCO USER 08/30/2014 [place] History of tobacco use LIFETIME NON TOBACCO USER 10/20/2013 NEVER SMOKED. [facility] History of tobacco use LIFETIME NON TOBACCO USER 06/20/2013 NEVER SMOKED. [facility] History of tobacco use LIFETIME NON TOBACCO USER 05/05/2013 [facility] History of tobacco use LIFETIME NON TOBACCO USER 03/11/2013 [facility] History of tobacco use LIFETIME NON TOBACCO USER 03/10/2013 [facility] History of tobacco use LIFETIME NON TOBACCO USER 02/23/2013 Mary [facility] History of tobacco use LIFETIME NON TOBACCO USER 12/27/2012 Mary [facility] History of tobacco use LIFETIME NON TOBACCO USER 11/30/2012 Mary [facility] History of tobacco use LIFETIME NON TOBACCO USER 11/06/2012 Mary [facility] History of tobacco use LIFETIME NON TOBACCO USER 07/26/2012 Mary [facility] History of tobacco use LIFETIME NON TOBACCO USER 07/17/2012 Mary [facility] History of tobacco use LIFETIME NON TOBACCO USER 03/22/2012 Mary [facility] History of tobacco use LIFETIME NON TOBACCO USER 09/05/2011 Mary [facility] History of tobacco use LIFETIME NON TOBACCO USER 05/15/2011 [facility] History of tobacco use LIFETIME NON TOBACCO USER 04/08/2011 Mary [facility] History of tobacco use LIFETIME NON TOBACCO USER 02/21/2011 [facility] History of tobacco use LIFETIME NON TOBACCO USER 01/21/2011 [facility] History of tobacco use LIFETIME NON TOBACCO USER 07/09/2010 [facility] History of tobacco use LIFETIME NON TOBACCO USER 12/07/2009 never smoked!!! Mary [facility] History of tobacco use LIFETIME NON TOBACCO USER 05/15/2009 Mary [facility] History of tobacco use LIFETIME NON TOBACCO USER 07/14/2008 Mary [facility] History of tobacco use LIFETIME NON TOBACCO USER 03/26/2007 Mary [facility] History of tobacco use LIFETIME NON TOBACCO USER 05/28/2006 Mary [facility] History of tobacco use LIFETIME NON TOBACCO USER 05/13/2005 Mary [facility] History of tobacco use LIFETIME NON TOBACCO USER 06/03/2004 Mary [facility] History of tobacco use LIFETIME NON TOBACCO USER 05/31/2003 Mary [facility] Plan of Care List of future care activities from [facility] facilities. Additional future care activities may be listed in the Assessment and Plan section. Date/Time Care Activity Care Activity Detail Facili ty 05/26/2025 AMBULATORY - MEDICINE AMBULATORY - MEDICI [facility] [place] [facility] Advance Directives List of completed, amended, or rescinded Advance Directives on record at [facility] facilities. An actual copy of the Directive is not included. Date Advance Directive Provider Source 03/14/2013 ADVANCE DIRECTIVE DISCUSSION EFREN ALEMAN [facility] 03/14/2013 ADVANCE DIRECTIVE [facility] 11/05/2012 ADVANCE DIRECTIVE DISCUSSION VIRY PUCKETT [facility] 02/27/2011 ADVANCE DIRECTIVE DISCUSSION CATRACHITA GAUTAM [facility] 01/16/2011 ADVANCE DIRECTIVE DISCUSSION VIRY PUCKETT [facility] 01/06/2011 ADVANCE DIRECTIVE DISCUSSION STEFANY MATTHEW [facility]
--- OUTSIDE RECORDS SUMMARY | 2025-01-06 07:46 | XMS_ITS | Clinical Summary ---
Author Organization [facility] Address [address] [place] [address] Phone Care Team Providers Care Assistant Guest Services Manager Name Role Phone John Mendez MD Primary Care Provider [phone] Medications metoprolol tartrate (LOPRESSOR) 50 mg tablet TAKE 1 TABLET BY MOUTH TWICE DAILY 200 tablet 05/10/2024 Active metoprolol tartrate (LOPRESSOR) 50 mg tablet Take 1 tablet (50 mg total) by mouth 2 (two) times a day. 12/24/2023 Active rosuvastatin (CRESTOR) 40 mg tablet Take 1 tablet (40 mg total) by mouth 1 (one) time each day. 11/05/2023 Active famotidine (PEPCID) 40 mg tablet Take 1 tablet (40 mg total) by mouth 1 (one) time each day. 100 tablet 05/10/2024 Active spironolactone (ALDACTONE) 25 mg tablet Take 1 tablet (25 mg total) by mouth 1 (one) time each day. 100 tablet 05/10/2024 Active glipiZIDE (GLUCOTROL XL) 2.5 mg 24 hr tablet Take 1 tablet (2.5 mg total) by mouth 1 (one) time each day. 90 tablet 05/10/2024 Active Encounters Date Type Department Care Team Description 12/12/2024 Telephone [place] [address] [place] [address] John Mendez MD Referral ( Attempt to reach pt, no response. aek) from Last 3 Months Surgical History Surgery Date Site/Laterality Comments HERNIA REPAIR 08/28/2015 PROCEDURE: HISTORICAL HERNIA REPAIR/MARILIN CARDIAC CATHETERIZATION 06/16/2016 Left PROCEDURE: HISTORICAL CARDIAC CATH; COMMENT: late presenting STEMI. EF 45% TONSILLECTOMY 1954 PROCEDURE: HISTORICAL TONSILLECTOMY OTHER SURGICAL HISTORY 06/2013 PROCEDURE: ---- OTHER ----; COMMENT: cyst removed from posterior neck COLONOSCOPY PROCEDURE: HISTORICAL COLONOSCOPY Medical History Medical History Date Comments [place], old 01/19/2017 [place]; [place] 05/2016 [facility], has 8 stents Post-nasal drip 01/19/2017 DX:Post-nasal dr ip Grief reaction DX:Grief reactio n; COMMENT: 2011 Ankylosing spondylitis ([facility] V24, [facility] V28) 01/19/2017 DX:Ankylosing spondylitis (H CC); COMMENT: occas tylenol #3 Essential hypertension, benign 01/19/2017 D X:Essential hypertension, benign History of pancreatitis DX:Histo ry of pancreatitis Hearing impaired 03/23/2017 DX:Hearing impa ired Hyperlipidemia 04/29/2017 DX:Hyperlipidemi a CAD (coronary artery disease) 04/29/2017 DX :CAD (coronary artery disease) Gout 04/29/2017 DX:Gout GERD (gastroesophageal reflux disease) 01/19/2017 DX:GERD (gastroesophageal reflux disease) Anxiety 04/29/2017 DX:Anxiety Type 2 diabetes mellitus wit h peripheral vascular disease ([facility] V24, [facility] V28) 01/19/2017 DX:Type 2 diabetes mellitus with peripheral vascular disease (HCC) PVD (peripheral vascular dis ease) ([facility] V24) 04/29/2017 DX:PVD (peripheral vascular disease) ([facility]) HTN (hypertension) 08/17/2017 DX:HTN (hyper tension) Arthritis 08/17/2017 DX:Arthritis Hemorrhoids 08/17/2017 DX:Hemorrhoids Family History Medical History Relation Name Comments Hypertension Father Other: cerebral hemorrhage Father Coronary artery disease Mother Diabetes Mother Asthma Son Diabetes Son Relation Name Status Comments Father Mother Son Social History Tobacco Use Types Packs/Day Years Used Date Smoking Tobacco: Never Smokeless Tobacco: Never Alcohol Use Standard Drinks/Week Comments No 0 (1 standard drink = 0.6 oz pur e alcohol) Sex and Gender Information Value Date Recorded Sex Assigned at Not on file Legal Sex Male 8:36 AM EST Gender Identity Not on file Sexual Orientation Not on file Obstetrics History Last Filed Vital Signs Vital Sign Reading Time Taken Comments Blood Pressure 124/78 12/24/2023 10:47 AM EDT Pulse 64 12/24/2023 10:47 AM EDT Temperature - - Respiratory Rate - - Oxygen Saturation - - Inhaled Oxygen Concentration - - Weight 74.8 kg (164 lb 12.8 oz) 024 10:47 AM EDT Height 160 cm (5' 3 ) 12/24/2023 10:47 AM EDT Body Mass Index 29.19 12/24/2023 10:47 AM EDT Plan of Treatment Health Maintenance Due Date Last Done Comments Diabetes: Annual Foot Exam 1958 Diabetes: Annual Retina Eye Exam 1960 Pneumococcal Vaccine: 50+ Years (1 of 1 - PCV) 1998 Zoster Vaccines (1 of 2) 1998 Falls Risk Assessment 05/03/2022 Hepatitis C Screening 05/03/2022 Social Influencers of Health Screening 05/03/2022 Diabetes: Annual Urine Albumin-Creatinine Ratio (uACR) 05/04/2022 RSV Immunization Adult Patients (1 - 1-dose 75+ series) 09/25/2023 COVID-19 Vaccine ( season) 2024 04/05/2021, 09/27/2020, 08/30/2020 Depression Screening 05/25/2024 Diabetes: Blood Sugar Control Test (HGBA1C) 06/30/2024 12/29/2023 Diabetes: Annual GFR (Glomerular Filtration Rate) 12/28/2024 12/29/2023 Hypertension/CHF/CAD Annual BMP Blood Test 12/28/2024 12/29/2023 Influenza Vaccine (#1) 2025 , 02/11/2021, 02/21/2019, Additional history exists DTaP,Tdap,and Td Vaccines (2 - Td or Tdap) 06/18/2028 06/18/2018 Cholesterol Screening (Lipid Panel) 12/28/2028 12/29/2023 HIB Vaccines Aged Out No longer eligi ble based on patient's age to complete this topic HPV Vaccines Aged Out No longer eligi ble based on patient's age to complete this topic Hepatitis A Vaccines Aged Out No long er eligible based on patient's age to complete this topic Hepatitis B Vaccines Aged Out No long er eligible based on patient's age to complete this topic IPV Vaccines Aged Out No longer eligi ble based on patient's age to complete this topic MMR Vaccines Aged Out No longer eligi ble based on patient's age to complete this topic Meningococcal ACWY Vaccine Aged Out N o longer eligible based on patient's age to complete this topic Meningococcal B Vaccine Aged Out No l onger eligible based on patient's age to complete this topic RSV Immunization Patients Under 20 months Aged Out No longer eligible based on patient's age to complete this topic Varicella Vaccines Aged Out No longer eligible based on patient's age to complete this topic Care Teams Assistant Guest Services Manager Relationship Specialty Start Date End Date John Mendez MD [address] [place] [address] Dr Eden [place] PCP - General Family Medicine 10/24/24
[2025-01-06 11:16] LABS: MANUAL DIFF FLAG NO
[2025-01-06 11:19] LABS: Appearance Urine Clear; Glucose Urine UA Negative (Negative); PH 5.5 (5.0-9.0); Specific Gravity - Urine 1.020 (1.005-1.025)
[2025-01-06 11:20] LABS: Hematocrit 44.7 % (42.0-52.0); Hemoglobin 15.7 g/dl (14.0-18.0); Imm Gran Abs Auto 0.07 X10*3/uL (0.00-0.03); Imm Gran Pct Auto 0.8 % (0.0-0.4); Lymphocytes Absolute Auto 2.5 X10*3/uL (1.2-4.9); Mean Corpuscular HGB Conc 35.1 g/dl (31.0-36.0); Mean Corpuscular Hemoglobin 31.1 pg (27.0-33.0); Mean Corpuscular Volume 88.5 fL (80.0-98.0); NRBC Abs Auto 0.000 X10*3/uL (0.0-0.012); NRBC Pct Auto 0.0 /100WBC (0.0-0.2); Platelet Count 163 X10*3/uL (160-400); Red Blood Count 5.05 X10*6/uL (4.60-5.80); White Blood Count 8.8 X10*3/uL (4.8-10.8)
[2025-01-06 11:39] LABS: Alanine Aminotransferase 25 U/L (0-40); Albumin Level 4.2 g/dL (3.5-5.0); Alkaline Phosphatase 95 U/L (39-117); Anion Gap 10 (12-20); Aspartate Amino Transferase 35 U/L (5-37); Blood Urea Nitrogen 20 mg/dL (9-16); Calcium 10.0 mg/dL (8.4-10.2); Carbon Dioxide 28 mmol/L (22-29); Chloride 106 mmol/L (96-108); Cholesterol 102 mg/dL (<200); Estimated Glomerular Filt Rate 59; HDL Cholesterol 33 mg/dL (>40); Potassium 5.0 mmol/L (3.3-5.1); Sodium 139 mmol/L (135-145); Total Protein 7.0 g/dL (6.5-8.0); Triglycerides 136 mg/dL (<150)
[2025-01-06 11:56] LABS: Microalbum/Creatinine Ratio Ur 14.4 ug/mg cr (<30)
== END 2025-01-06 07:44 | disposition home or self-care (01) ==
LOC: HO.WFDLDS 07:43
PROVIDERS: Visit Provider Family Medicine
DX: Z00.00 Encounter for general adult medical examination without abnormal findings (principal); I10 Essential (primary) hypertension; E55.9 Vitamin D deficiency, unspecified; Z12.5 Encounter for screening for malignant neoplasm of prostate
CPT/HCPCS: 36415; 80053; 80061; 81003; 82043; 82306; 82570; 84153; 85025

== ENCOUNTER 2025-01-09 08:15 | Outpatient (AMB) | payer MEDICARE, SELFPAY ==
--- OUTSIDE RECORDS SUMMARY | 2025-01-06 02:45 | XMS_ITS | Continuity of Care Document ---
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 It does not include entries that were removed or entered in error. Problem Status Onset Date Problem Type Date of Resolution Comments Source Allergic rhinitis Active Condition [place] Angina Pectoris * (ICD-9-CM 413.9) Active Condition [facility] Ankylosing spondylitis Active Condition [facility] Ankylosing Spondylitis * (ICD-9-CM 720.0) Active Condition [facility] Anxiety Active Condition [place] Anxiety (SNOMED CT [id number]) Active Condition [facility] Anxiety disorder Active Condition [facility] Arthritis Active Condition [facility] Bilateral sensory hearing loss Active Condition [place] CAD/ASHD UNSP VSL Active Condition [facility] Chest Pain * (ICD-9-CM 786.50) Active Condition [facility] Colonoscopy Screening Active Condition [facility] Depression * (ICD-9-CM 300.4/311.) Active Condition [facility] Dermatitis * (ICD-9-CM 692.9) Active Condition [facility] Diabetes mellitus Active Condition [facility] Epidermal Cyst * (ICD-9-CM 706.2) Active Condition [facility] Essential hypertension Active Condition [place] Gastroesophageal reflux disease Active Condition [facility] RY GERD * (ICD-9-CM 530.81) Active Condition [facility] Hearing loss * (ICD-9-CM 389.9) Active Condition C.Abrahan [facility] Hemorrhoids Active Condition [facility] Hernia of abdominal wall Active Condition [place] History of myocardial infarction Active Condition Mar 27, 2017 Entered By: CARMELINA CHRISTIANSON Comment: Hx [place] w/Stent 06/16/16Mar 27, 2017 Entered By: CARMELINA CHRISTIANSON Comment: Hx [place] w/6 stents 2004 [facility] History of pancreatitis Active Condition Mar 27, 2017 Entered By: CARMELINA CHRISTIANSON Comment: 2013 [facility] Hyperlipidemia Active Condition [facility] HYPERLIPIDEMIA Active Condition C.Abrahan [facility]pertension Active Condition [facility] HYPERTENSION,UNSPEC Active Condition Martha [facility] Impacted cerumen * (ICD-9-CM 380.4) Active Condition [facility] 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 Mar 25, 2017 Entered By: CARMELINA CHRISTIANSON Comment: EF 40-45% [facility] Lipoma Active Condition [place] Major Depressive Disorder, Single Episode, in Full Remission Active Condition [facility] [place],HX Active Condition [facility] Multi vessel coronary artery disease Active Condition [place] Obesity Active Condition [place] Obesity * (ICD-9-CM 278.00) Active Condition [facility] Other disorders of skin and subcutaneous tissue (ICD-9-CM 709.9) Active Condition [facility] Pain in joint involving shoulder region (ICD-9-CM 719.41) Active Condition [facility] Peripheral vascular disease Active Condition [facility] [place] [facility] Primary Care Provider Active Condition May 12, 2022 Entered By: JORDAN HIGGINBOTHAM Comment: Dr Marlen Romo [facility] Rhinitis * (ICD-9-CM 472.0) Active Condition [facility] S/P PTCA Active Condition [facility] Tinnitus Active Condition [place] Type 2 diabetes mellitus [facility] [place] Diagnosis: ICD-10-CM I10 Essential (primary) hypertension Active Diagnosis [facility] Medications Combined list of outpatient medications from Department of Defense and [facility] Affairs facilities.Medications provided include 1) outpatient medications from the last 15 months, and 2) patient-reported medications. Medication Details Route Status Patient Instructions Prescription Expires Prescription Number Last Dispense Date Ordering Provider Order Date Order Qty Source ALPRAZOLAM 0.25MG TAB TAKE ONE TABLET BY MOUTH ORAL ACTIVE TYRON FUENTES MD 2014 [place] ALPRAZOLAM 0.5MG TAB TAKE ONE TABLET BY MOUTH ORAL ACTIVE IRAM CHRISTIANSON SA 2019 [place] ASPIRIN 81MG TAB,EC ORAL ACTIVE MCGOFFJA CQUELINE 2012 [facility] ASPIRIN 81MG TAB,EC TAKE ONE TABLET BY MOUTH ORAL ACTIVE IRAM CHRISTIANSON SA 2016 [place] ASPIRIN 81MG TAB,EC TAKE (DO NOT CRUSH) ONE TABLET BY MOUTH EVERY DAY ORAL ACTIVE TYRON FUENTES MD 2014 [place] BUSPIRONE TAB TAKE 7.5MG BY MOUTH TWICE A DAY ORAL ACTIVE TYRON FUENTES MD 2014 [place] CHOLECALCIF RICHARD 25MCG (1,000UNIT) TAB TAKE ONE TABLET BY MOUTH DAILY ORAL ACTIVE MEDOFFMARCE CQUELINE 2012 [facility] CLOPIDOGREL BISULFATE 75MG TAB TAKE ONE TABLET BY MOUTH ORAL ACTIVE IRAM CHRISTIANSON SA 2016 [place] FAMOTIDINE 40MG TAB TAKE ONE TABLET BY MOUTH ONCE DAILY NEEDED ORAL ACTIVE IRAM CHRISTIANSON SA 2021 [facility] [place] [facility] FLUTICASONE NASAL SOLN,NASAL INSTILL INTO EACH NOSTRIL NASAL ACTIVE IRAM CHRISTIANSON SA 2016 [place] GLIPIZIDE 2.5MG TAB,SA TAKE ONE TABLET BY MOUTH ONCE DAILY ORAL ACTIVE IRAM CHRISTIANSON SA 2021 [facility] [place] [facility] LISINOPRIL 10MG TAB TAKE ONE TABLET BY MOUTH EVERY DAY ORAL ACTIVE TYRON FUENTES MD 2014 [place] METOPROLOL TARTRATE 50MG TAB TAKE ONE TABLET BY MOUTH TWICE A DAY ORAL ACTIVE TYRON FUENTES MD 2014 [place] METOPROLOL TARTRATE 50MG TAB TAKE ONE TABLET BY MOUTH TWICE DAILY ORAL ACTIVE IRAM CHRISTIANSON SA ROSA 2024 [facility] IELD NITROGLYCER IN 0.4MG TAB,SUBLING UAL DISSOLVE UNDER THE TONGUE EVERY 5 MINUTES NEEDED SUBLIN GUAL ACTIVE IRAM CHRISTIANSON SA ROSA 2016 [place] NITROGLYCER IN 0.4MG TAB,SUBLING UAL DISSOLVE ONE TABLET UNDER THE TONGUE NOW, IF NO RELIEF IN 5 MINUTES CALL 911. SUBLIN GUAL ACTIVE TYRON FUENTES MD 2014 [place] ROSUVASTATI N [place] 40MG TAB TAKE ONE TABLET BY MOUTH ORAL ACTIVE RA KELLY PIERRE 2022 [facility] SPIRONOLACT ONE 25MG TAB TAKE ONE TABLET BY MOUTH ONCE DAILY ORAL ACTIVE IRAM CHRISTIANSON SA 2021 [facility] Allergies, Adverse Reactions, Alerts Combined list of allergies from Department of Defense and Veterans Affairs facilities. It does not include entries that were removed or entered in error. Substance Category Reaction Severity Reaction type Status Date Reported Comments Source LOVASTATIN Propensity to adverse reactions to drug (finding) active 5 [facility] PENICILLIN Propensity to adverse reactions to drug (finding) NAUSEA,VO [place], Fever active 4 [facility] PENICILLIN Propensity to adverse reactions to drug (finding) active 7 [facility] [place] [facility] SIMVASTATIN Propensity to adverse reactions to drug (finding) active 5 [facility] ZOCOR Propensity to adverse reactions to drug (finding) active 8 [facility] Immunizations Combined list of available immunizations from the Department of Defense and Veterans Affairs facilities. Immunization Series Date Given Administered By Site Reaction Lot Number CVX Code Drug Relief Charge Nurse Status Comments Source INFLUENZA, HIGH-DOSE, TRIVALENT, PF 2024 ALEJANDRA HIGGINBOTHAM ON M LEFT DELTO ID [id number] 135 complet ed Booster for Series, ADMINISTE RED AT [facility] IELD COVID-19 (MODERNA), MRNA, LNP-S, PF, 50 MCG/0.5 ML (AGES 12+ YEARS) 2023 ALEJANDRA HIGGINBOTHAM ON M LEFT DELTO ID [id number] 312 complet ed Booster for Series, ADMINISTE RED AT ME, [facility] IELD INFLUENZA, UNSPECIFIED FORMULATION 2021 88 complet ed HISTORICA L INFORMATI ON - SOURCE UNSPECIFI ED, [facility] COVID-19 (MODERNA), MRNA, LNP-S, PF, 100 MCG OR 50 MCG DOSE 3 2021 207 complet ed MOD; [id number]; 2 [facility] IELD COVID-19 (MODERNA), MRNA, LNP-S, PF, 100 MCG/0.5 ML DOSE 2 2020 207 complet ed MOD; [id number]; 1 [facility] IELD COVID-19 (MODERNA), MRNA, LNP-S, PF, 100 MCG/0.5 ML DOSE 1 2020 207 complet ed MOD; [id number]; 1 [facility] [place]ELD INFLUENZA, UNSPECIFIED FORMULATION 2019 88 complet ed [facility] INFLUENZA, SEASONAL, INJECTABLE 2017 141 complet ed cvs [facility] INFLUENZA, SEASONAL, INJECTABLE 2016 141 complet ed non va [facility] TDAP 2016 115 complet ed Given by his PCP ,Vet will provide documenta tion. [facility] PNEUMOCOCCAL CONJUGATE PCV 13 2014 133 complet ed [place] FLU,3 YRS (HISTORICAL) 2014 88 complet ed [facility] PCP [facility] DTAP, UNSPECIFIED FORMULATION 2014 107 complet ed [place] TET-DIP-A/PER TUSSIS (HISTORICAL) 2014 NONE 139 complet ed Booster for [place], [facility] FLU,3 YRS (HISTORICAL) 2013 88 complet ed Community provider [facility] INFLUENZA, UNSPECIFIED FORMULATION 2012 88 complet ed C.WCristi [facility] FLU,3 YRS (HISTORICAL) 2011 88 complet ed [place].Abrahan [facility] INFLUENZA, UNSPECIFIED FORMULATION 2010 88 complet ed C.WCristi [facility] INFLUENZA, UNSPECIFIED FORMULATION 2008 NONE 88 complet ed Left Deltoid (IM) C.WCristi [facility] NOVEL INFLUENZA-H1N 1-09, ALL FORMULATIONS 2008 128 complet ed [employer] C.WCristi [facility] INFLUENZA, UNSPECIFIED FORMULATION 2006 NONE 88 complet ed Left Deltoid (IM), Lot Number:[id number] 10/30 Mary [facility] FLU,3 YRS (HISTORICAL) 2006 DARELL ZENDEJAS 88 complet ed C.WCristi [facility] FLU,3 YRS (HISTORICAL) 2004 SCOTT VANG 88 complet ed C.WCristi [facility] PNEUMOCOCCAL (HISTORICAL) 2004 109 complet ed Right Deltoid (IM), Lot Number: [id number] ex. 09-16-06 Mary [facility] INFLUENZA, UNSPECIFIED FORMULATION 2003 88 complet ed [place].WCristi [facility] TETANUS TOXOID, UNSPECIFIED FORMULATION 2003 112 complet ed Left Deltoid lot#[id number] AA ex 11/26 [facility] Vital Signs Combined list of inpatient and outpatient Vital Signs from Department of Defense and Veterans Affairs, ranging from 12 months to all on record, depending upon the facility. Vital Sign Value Date Comments Source SYSTOLIC BLOOD PRESSURE 174 05/27/19 25 10:45:11 [facility] DIASTOLIC BLOOD PRESSURE 80 025 10:45:11 [facility] PULSE OXIMETRY 97 05/27/2024 10:45:11 [facility] WEIGHT 161.6 05/27/2024 10:45:11 [facility] BMI 29 kg/m2 05/27/2024 10:45:11 [facility] [...] from Department of Veterans Affairs facilities going backup to the last 18 months, not all VA inpatient encounters are included; 2) Encounters from the Department of Defense facilities going backup to 280 months. Location Location Details Encounter Type Encounter Number Reason For Visit Attending Provider ADM Date DC Date Status Disposition Source [facility] Out[facility] Encounter [id number] 05/27 [facility] [place] [place] O/P EST LOW 20 MIN [id number] Diagnos is: ICD-10- CM I10 Essenti al (primar y) hyperte nsion SAEID CHRISTIANSON 05/27 [facility] [place] Social History Combined list of available smoking, tobacco, and other social history from Department of Defense and Veterans Affairs facilities. Social History Type Response Date Comment Source Tobacco smoking status CAIS VA-TOBACCO NEVER USED 05/27/2023 [place] History of tobacco use ME-TOBACCO NEVER USED 05/12/2022 [place] History of tobacco use VA-TOBACCO NEVER USED 05/30/2021 [place] History of tobacco use VA-TOBACCO NEVER USED 04/30/2020 [facility] History of tobacco use ME-TOBACCO NEVER USED 11/08/2018 [place] History of tobacco use VA-TOBACCO NEVER USED 04/27/2018 [place] History of tobacco use LIFETIME NON-TOBACCO USER 03/25/2017 [facility] [place] [facility] History of tobacco use LIFETIME NON-TOBACCO USER 11/19/2015 [place] History of tobacco use LIFETIME NON-TOBACCO USER 08/30/2014 [place] History of tobacco use LIFETIME NON TOBACCO USER 10/20/2013 NEVER SMOKED. Mary [facility] History of tobacco use LIFETIME NON TOBACCO USER 06/20/2013 NEVER SMOKED. Mary [facility] History of tobacco use LIFETIME NON TOBACCO USER 05/05/2013 Mary [facility] History of tobacco use LIFETIME NON TOBACCO USER 03/11/2013 Mary [facility] History of tobacco use LIFETIME NON TOBACCO USER 03/10/2013 Mary [facility] History of tobacco use LIFETIME NON TOBACCO USER 02/23/2013 Mary [facility] History of tobacco use LIFETIME NON TOBACCO USER 12/27/2012 Mary [facility] History of tobacco use LIFETIME NON TOBACCO USER 11/30/2012 Mary [facility] History of tobacco use LIFETIME NON TOBACCO USER 11/06/2012 Mary [facility] History of tobacco use LIFETIME NON TOBACCO USER 07/26/2012 Mary [facility] History of tobacco use LIFETIME NON TOBACCO USER 07/17/2012 Mary [facility] History of tobacco use LIFETIME NON TOBACCO USER 03/22/2012 Mary [facility] History of tobacco use LIFETIME NON TOBACCO USER 09/05/2011 Mary [facility] History of tobacco use LIFETIME NON TOBACCO USER 05/15/2011 [facility] History of tobacco use LIFETIME NON TOBACCO USER 04/08/2011 Mary [facility] History of tobacco use LIFETIME NON TOBACCO USER 02/21/2011 Mary [facility] History of tobacco use LIFETIME NON TOBACCO USER 01/21/2011 [facility] History of tobacco use LIFETIME NON TOBACCO USER 07/09/2010 Mary [facility] History of tobacco use LIFETIME NON TOBACCO USER 12/07/2009 never smoked!!! Mary [facility] History of tobacco use LIFETIME NON TOBACCO USER 05/15/2009 Mary [facility] History of tobacco use LIFETIME NON TOBACCO USER 07/14/2008 Mary [facility] History of tobacco use LIFETIME NON TOBACCO USER 03/26/2007 Mary [facility] History of tobacco use LIFETIME NON TOBACCO USER 05/28/2006 Mary [facility] History of tobacco use LIFETIME NON TOBACCO USER 05/13/2005 Mary [facility] History of tobacco use LIFETIME NON TOBACCO USER 06/03/2004 Mary [facility] History of tobacco use LIFETIME NON TOBACCO USER 05/31/2003 [facility] Plan of Care List of future care activities from [facility] facilities. Additional future care activities may be listed in the Assessment and Plan section. Date/Time Care Activity Care Activity Detail Facili ty 05/26/2025 AMBULATORY - MEDICINE AMBULATORY - MEDICI [facility] [place] [facility] Advance Directives List of completed, amended, or rescinded Advance Directives on record at [facility] facilities. An actual copy of the Directive is not included. Date Advance Directive Provider Source 03/14/2013 ADVANCE DIRECTIVE DISCUSSION EFREN ALEMAN [facility] 03/14/2013 ADVANCE DIRECTIVE MELLISSA [facility] 11/05/2012 ADVANCE DIRECTIVE DISCUSSION [facility] 02/27/2011 ADVANCE DIRECTIVE DISCUSSION CATRACHITA GAUTAM [facility] 01/16/2011 ADVANCE DIRECTIVE DISCUSSION VIR[facility] PUCK[facility]T [facility] 01/06/2011 ADVANCE DIRECTIVE DISCUSSION STEFANY MATTHEW [facility]
[2025-01-09 08:27] VITALS: BP 128/60; PULSE 74; BMI 28.1
--- NOTE | 2025-01-09 08:27 | MHC.OFFVIS ---
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 Allergies Penicillins Allergy (Intermediate, Verified 06/15/24 15:21) Fainting Medication List - Last Reconciled 01/09/25 by Abel Hodge MD acetaminophen-codeine 300-30 mg 1 tab PO BID PRN aspirin (Adult Aspirin Regimen) 81 mg PO DAILY blood sugar diagnostic As directed blood-glucose meter As directed clopidogrel 75 mg PO DAILY 90 days famotidine 40 mg PO DAILY fluticasone propionate 50 mcg/actuation 1 spray intranasal DAILY PRN glipizide ER 2.5 mg PO QAM 90 days metoprolol succinate ER 50 mg PO DAILY 90 days nitroglycerin 0.4 mg sublingual Q5M PRN rosuvastatin 40 mg PO DAILY 90 days spironolactone 25 mg PO DAILY 90 days HPI Comments Details: The patient is a 74-year-old male presenting for cardiovascular evaluation and management. He has a history of coronary artery disease with two major myocardial infarctions, the first occurring in 2003 and the second approximately nine years ago. Following these events, he had multiple coronary stents placed, with the last intervention occurring about nine years ago. The patient reports a history of heartburn, which was initially thought to be the cause of his symptoms during his second myocardial infarction. He has been on medications including aspirin and Plavix, and was advised to continue these by his previous doughnut icer machine. He has experienced a lack of consistent cardiology follow-up due to changes in healthcare providers and relocation. The patient moved from [place] to [place], where he continued his cardiac care, and then returned to [place]. He is currently seeking a new doughnut icer machine for ongoing management and evaluation of his cardiac status. He has got no cardiac symptoms at this time. No exertional angina or any other symptoms. [facility] Medical History (Updated 01/09/25 @ 09:27 by Abel Hodge MD) Heart attack Arachnoiditis of spine Surgical History (Updated 01/09/25 @ 08:42 by Sujey Broussard) H/O heart artery stent Family History (Updated 01/09/25 @ 08:44 by Sujey Broussard) Mother Heart problem Diabetes Father Heart problem Social History (Updated 01/09/25 @ 08:44 by Sujey Broussard) Housing: Apartment Alcohol intake: never Patient Tobacco Use Status: Never used Tobacco e-Cigarette/Vaping Use: Never Used Second Hand Smoke Exposure: No Current occupational exposures/hazards: No Cognitive needs: No Hearing needs: Yes Vision needs: Yes Review of Systems Const Denies weakness ENT Denies dizziness Card Denies chest pain, Denies chest pain with activity, Denies syncope, Denies rapid heart rate, Denies pedal edema, Denies edema, Denies leg edema, Denies lightheadedness, Denies palpitations, Denies dyspnea, Denies dyspnea on exertion and Denies orthopnea Resp Denies cough, Denies dyspnea and Denies dyspnea on exertion GI Denies hematochezia and Denies change in stool character Musc Denies abnormal gait, Denies muscle cramps, Denies muscle weakness, Denies numbness, Denies radiating pain into limb and Denies tingling Neuro Denies abnormal gait, Denies dizziness, Denies syncope, Denies numbness, Denies tingling and Denies weakness Endo Denies palpitations Physical Exam Vital Signs: Last Vital Signs Pulse 74 01/09/25 08:27 BP 128/60 01/09/25 08:27 BMI result Body Mass Index 28.1 Const General: comfortable and no acute distress Orientation/consciousness: patient oriented x3 HEENT Other: Unremarkable Head: Yes normal to inspection Neck Neck: Yes normal visual inspection Chest Chest palpation & inspection: normal inspection of the chest Resp Auscultation: clear to auscultation bilaterally Cardio Palpation: normal PMI Heart sounds: S1 normal heart sound present, S2 normal heart sound present, no gallops, no murmurs and no rubs GI Palpation (GI): Soft to palpation Back/Spine/Pelvis Other: unremarkable Skin General skin exam: no rashes or lesions noted Neuro General: patient oriented x3 Extrem General: Yes normal to inspection Psych Mental Status: mental status grossly normal Office Procedures EKG Details: EKG with underlying sinus rhythm at 74/Min; VA prolongation to 304 milliseconds; moderate criteria for LVH versus normal variant; cannot exclude old inferior or lateral infarct; [place]. [address]-[id number], Complete Assessment & Plan Assessment & Plan (1) Atherosclerotic cardiovascular disease: Code(s): I25.10 - Atherosclerotic heart disease of [place] coronary artery without angina pectoris Category: Medical Plan: Patient described history of prior coronary disease/PCI. We will need to get records from [facility] where he has been seen before (, per patient). Per patient, he was advised to stay on both aspirin and Plavix. Remains on statins. Cholesterol is well controlled. No changes for now. (2) Heart block atrioventricular: Code(s): I44.30 - Unspecified atrioventricular block Category: Medical Plan: Prolonged VA on EKGs reflecting underlying conduction system disease. He is on beta-blockers and okay to continue for now as he is free of angina. (3) Type 2 diabetes mellitus with unspecified complications: Code(s): E11.8 - Type 2 diabetes mellitus with unspecified complications Category: Medical Plan: Listed to be on glipizide. Hemoglobin A1c is 6%. Plan Discussion Notes I discussed with the patient the need for an echocardiogram to assess his heart function. We reviewed his current medications, and I advised him to continue the same for now till records are reviewed. The patient was informed about the process of obtaining his previous medical records to aid in his ongoing care. Patient was informed and verbally consented to the use of an ambient scribe for clinic note documentation during this visit. Orders: Orders CA echo transthoracic complete Today I25.10 - Atherosclerotic heart disease of [place] coronary artery without angina pectoris Patient Instructions: - Continue taking current medications. - To contact us immediately, if any symptoms like chest pain or shortness of breath. - Sign the release form to obtain previous medical records. Coding Level of Care Code New Pt Level 4 (56442) Complex EM visit Add On G2211 Diagnoses Atherosclerotic cardiovascular disease I25.10 Heart block atrioventricular I44.30 Type 2 diabetes mellitus with unspecified complications E11.8 CPT Codes EKG - CPT: 17912-[id number], Complete ([id number])
--- OUTSIDE RECORDS SUMMARY | 2025-01-09 08:34 | XMS_ITS | Clinical Summary ---
Author Organization [facility] Address [address] [place] [address] Phone Care Team Providers Care Leading Firefighter Name Role Phone John Mendez MD Primary Care Provider Medications metoprolol tartrate (LOPRESSOR) 50 mg tablet [...] Type Department Care Team Description 12/12/2024 Telephone [facility] [address] [place] [address] John Mendez MD Referral ( Attempt [...] COLONOSCOPY Medical History Medical History Date Comments RI, old 01/19/2017 DX:RI, old; COMM ENT: RI 2003, [place] (STEMI) 05/2016 [facility], has 8 stents Post-nasal drip 01/19/2017 DX:Post-nasal dr ip Grief reaction DX:Grief reactio n; COMMENT: 2011 Ankylosing spondylitis ([facility] V24, [facility] V28) 01/19/2017 DX:Ankylosing spondylitis (H CC); COMMENT: [...] diabetes mellitus wit h peripheral vascular disease ([facility] [place] V24, [facility] [place] V28) 01/19/2017 DX:Type 2 diabetes mellitus with peripheral vascular disease (HCC) PVD (peripheral vascular dis ease) ([facility] [place] V24) 04/29/2017 DX:PVD (peripheral vascular disease) ([facility]) HTN (hypertension) 08/17/2017 DX:HTN (hyper tension) Arthritis [...] age to complete this topic Care Teams Leading Firefighter Relationship Specialty Start Date End Date John Mendez MD [address] [place] [address] Dr Eden MA PCP - General Family Medicine 10/24/24
== END 2025-01-09 09:15 | disposition home or self-care (01) ==
PROVIDERS: PCP Family Medicine; Visit Provider Internal Medicine
DX: I25.10 Atherosclerotic heart disease of native coronary artery without angina pectoris (principal); I44.30 Unspecified atrioventricular block; E11.8 Type 2 diabetes mellitus with unspecified complications
CPT/HCPCS: 93010; 99204; G2211

== ENCOUNTER → 2025-01-09 08:15 | Outpatient (BNVA) | payer MEDICARE, SELFPAY | PROVIDERS: PCP Family Medicine; Visit Provider Internal Medicine | DX: I25.10 Atherosclerotic heart disease of native coronary artery without angina pectoris (principal); I44.30 Unspecified atrioventricular block; E11.8 Type 2 diabetes mellitus with unspecified complications | CPT/HCPCS: 93005; 99202 ==

== ENCOUNTER 2025-01-11 09:49 | Outpatient (AMB) | payer MEDICARE, SELFPAY ==
--- OUTSIDE RECORDS SUMMARY | 2025-01-06 02:45 | XMS_ITS | Continuity of Care Document ---
Author Name [facility] Organization [facility] Care Team Providers Care Shipping And Receiving Coordinator Name Role Phone [facility] Unavailable Unavailable Problems Combined list of problems from Department of Defense and Veterans Affairs facilities. It does not include entries that were removed or entered in error. Problem Status Onset Date Problem Type Date of Resolution Comments Source Allergic rhinitis Active Condition [place] Angina Pectoris * (ICD-9-CM 413.9) Active Condition [facility] Ankylosing spondylitis Active Condition [facility] [place] [facility] Ankylosing Spondylitis * (ICD-9-CM 720.0) Active Condition [facility] Anxiety Active Condition [place] Anxiety (SNOMED CT 81939242) Active Condition [facility] Anxiety disorder Active Condition [facility] [place] [facility] Arthritis Active Condition [facility] [place] [facility] Bilateral sensory hearing loss Active Condition [place] CAD/ASHD UNSP VSL Active Condition [facility] Chest Pain * (ICD-9-CM 786.50) Active Condition [facility] Colonoscopy Screening Active Condition [facility] [place] [facility] Depression * (ICD-9-CM 300.4/311.) Active Condition [facility] Dermatitis * (ICD-9-CM 692.9) Active Condition [facility] Diabetes mellitus Active Condition [facility] Epidermal Cyst * (ICD-9-CM 706.2) Active Condition [facility] Essential hypertension Active Condition [place] Gastroesophageal reflux disease Active Condition [facility] RY GERD * (ICD-9-CM 530.81) Active Condition [facility] Hearing loss * (ICD-9-CM 389.9) Active Condition C.Abrahan [facility] Hemorrhoids Active [facility] [place] Hernia of abdominal wall Active Condition [place] History of myocardial infarction Active Condition Mar 27, 2017 Entered By: CARMELINA CHRISTIANSON Comment: Hx NC w/Stent 06/16/16Mar 27, 2017 Entered By: CARMELINA CHRISTIANSON Comment: Hx NC w/6 stents 2004 [facility] History of pancreatitis Active Condition Mar 27, 2017 Entered By: CARMELINA CHRISTIANSON Comment: 2013 [facility] Hyper[facility] HY[facility]IP[facility]IA Active Condition C.Abrahan [facility] [...] [facility] [place] Lipoma Active Condition [place] Major Depressive Disorder, Single Episode, in Full Remission Active Condition [facility] NC,HX Active Condition [facility] Multi vessel coronary artery disease Active Condition [place] Obesity Active Condition [place] Obesity * (ICD-9-CM 278.00) Active Condition [facility] Other disorders of skin and subcutaneous tissue (ICD-9-CM 709.9) Active Condition [facility] Pain in joint involving shoulder region (ICD-9-CM 719.41) Active Condition [facility] Peripheral vascular disease Active Condition [facility] [place] [facility] Primary Care Provider Active Condition May 12, 2022 Entered By: JORDAN HIGGINBOTHAM Comment: Dr Marlen Romo [facility] Rhinitis * (ICD-9-CM 472.0) Active Condition [facility] S/P PTCA Active Condition [facility] Tinnitus Active Condition [place] Type 2 diabetes mellitus [facility] [place] [facility] Diagnosis: ICD-10-CM I10 Essential (primary) hypertension Active Diagnosis [facility] Medications Combined list of outpatient medications from [...] MOUTH ORAL ACTIVE TYRON FUENTES MD 2014 [place] ALPRAZOLAM 0.5MG TAB TAKE ONE TABLET BY MOUTH ORAL ACTIVE IRAM CHRISTIANSON SA 2019 [place] ASPIRIN 81MG TAB,EC ORAL ACTIVE MCGOFFJA CQUELINE 2012 [facility] ASPIRIN 81MG TAB,EC TAKE ONE TABLET BY MOUTH ORAL ACTIVE IRAM CHRISTIANSON SA 2016 [place] ASPIRIN 81MG TAB,EC TAKE (DO NOT CRUSH) ONE TABLET BY MOUTH EVERY DAY ORAL ACTIVE TYRON FUENTES MD 2014 [place] BUSPIRONE TAB TAKE 7.5MG BY MOUTH TWICE A DAY ORAL ACTIVE TYRON FUENTES MD 2014 [place] CHOLECALCIF RICHARD 25MCG (1,000UNIT) TAB TAKE ONE TABLET BY MOUTH DAILY ORAL ACTIVE MEDOFFMARCE CQUELINE 2012 [facility] CLOPIDOGREL BISULFATE 75MG TAB TAKE ONE TABLET BY MOUTH ORAL ACTIVE IRAM CHRISTIANSON SA 2016 [place] FAMOTIDINE 40MG TAB TAKE ONE TABLET BY MOUTH ONCE DAILY NEEDED ORAL ACTIVE IRAM CHRISTIANSON SA 2021 [facility] [place] [facility] FLUTICASONE NASAL SOLN,NASAL INSTILL INTO EACH NOSTRIL NASAL ACTIVE IRAM CHRISTIANSON SA 2016 [place] GLIPIZIDE 2.5MG TAB,SA TAKE ONE TABLET BY MOUTH ONCE DAILY ORAL ACTIVE IRAM CHRISTIANSON SA 2021 [facility] [place] [facility] [facility] LISINOPRIL 10MG TAB TAKE ONE TABLET BY MOUTH EVERY DAY ORAL ACTIVE TYRON FUENTES MD 2014 [place] METOPROLOL TARTRATE 50MG TAB TAKE ONE TABLET BY MOUTH TWICE A DAY ORAL ACTIVE TYRON FUENTES MD 2014 [place] METOPROLOL TARTRATE 50MG TAB TAKE ONE TABLET BY MOUTH TWICE DAILY ORAL ACTIVE IRAM CHRISTIANSON SA ROSA 2024 [facility] IELD NITROGLYCER IN 0.4MG TAB,SUBLING UAL DISSOLVE UNDER THE TONGUE EVERY 5 MINUTES NEEDED SUBLIN GUAL ACTIVE IRAM CHRISTIANSON SA ROS[place] 2016 [place] NITROGLYCER IN 0.4MG TAB,SUBLING UAL DISSOLVE ONE TABLET UNDER THE TONGUE NOW, IF NO RELIEF IN 5 MINUTES CALL 911. SUBLIN GUAL ACTIVE TYRON FUENTES MD 2014 [place] ROSUVASTATI N CA 40MG TAB TAKE ONE TABLET BY MOUTH ORAL ACTIVE RA KELLY PIERRE 2022 [facility] SPIRONOLACT ONE 25MG TAB TAKE ONE TABLET BY MOUTH ONCE DAILY ORAL ACTIVE IRAM CHRISTIANSON SA 2021 [facility] Allergies, Adverse Reactions, Alerts Combined list of allergies from Department of Defense and Veterans Affairs facilities. It does not include entries that were removed or entered in error. Substance Category Reaction Severity Reaction type Status Date Reported Comments Source LOVASTATIN Propensity to adverse reactions to drug (finding) active 5 [facility] PENICILLIN Propensity to adverse reactions to drug (finding) NAUSEA,VO MITING, Fever active [address] [facility] PENICILLIN Propensity to adverse reactions to drug (finding) active 7 [facility] [place] [facility] SIMVASTATIN Propensity to adverse reactions to drug (finding) active 5 [facility] ZOCOR Propensity to adverse reactions to drug (finding) active 8 Mary [facility] Immunizations Combined list of available immunizations from the Department of Defense and Veterans Affairs facilities. Immunization Series Date Given Administered By Site Reaction Lot Number CVX Code Drug Ankle Patch Molder Status Comments Source INFLUENZA, HIGH-DOSE, TRIVALENT, PF 2024 ALEJANDRA HIGGINBOTHAM ON M LEFT DELTO ID [id number] 135 complet ed Booster for Series, ADMINISTE RED AT [facility] IELD COVID-19 (MODERNA), MRNA, LNP-S, PF, 50 MCG/0.5 ML (AGES 12+ YEARS) 2023 ALEJANDRA HIGGINBOTHAM ON M LEFT DELTO ID [id number] 312 complet ed Booster for Series, ADMINISTE RED AT [place], [facility] IELD INFLUENZA, UNSPECIFIED FORMULATION 2021 88 complet ed HISTORICA L INFORMATI ON - SOURCE UNSPECIFI ED, [facility] COVID-19 (MODERNA), MRNA, LNP-S, PF, 100 MCG OR 50 MCG DOSE 3 2021 207 complet ed MOD; [id number]; 2 [facility] IELD COVID-19 (MODERNA), MRNA, LNP-S, PF, 100 MCG/0.5 ML DOSE 2 2020 207 complet ed MOD; [id number]; 1 [facility] IELD COVID-19 (MODERNA), MRNA, LNP-S, PF, 100 MCG/0.5 ML DOSE 1 2020 207 complet ed MOD; [id number]; 1 [facility] IELD INFLUENZA, UNSPECIFIED FORMULATION 2019 88 complet ed [facility] INFLUENZA, SEASONAL, INJECTABLE 2017 141 complet ed cvs [facility] INFLUENZA, SEASONAL, INJECTABLE 2016 141 complet ed non va [facility] TDAP 2016 115 complet ed Given by his PCP ,Vet will provide documenta tion. [facility] [place] PNEUMOCOCCAL CONJUGATE PCV 13 2014 133 complet ed [place] FLU,3 YRS (HISTORICAL) 2014 88 complet ed Count Includes [facility] PCP [facility] DTAP, UNSPECIFIED FORMULATION 2014 107 complet ed [place] TET-DIP-A/PER TUSSIS (HISTORICAL) 2014 NONE 139 complet ed Booster for Leigh, [facility] FLU,3 YRS (HISTORICAL) 2013 88 complet ed Community provider [facility] INFLUENZA, UNSPECIFIED FORMULATION 2012 88 complet ed C.WCristi [facility] FLU,3 YRS (HISTORICAL) 2011 88 complet ed [place].Abrahan [facility] INFLUENZA, UNSPECIFIED FORMULATION 2010 88 complet ed C.WCristi [facility] INFLUENZA, UNSPECIFIED FORMULATION 2008 NONE 88 complet ed Left Deltoid (IM) C.WCristi [facility] NOVEL INFLUENZA-H1N 1-09, ALL FORMULATIONS 2008 128 complet ed [employer] C.WCristi [facility] INFLUENZA, UNSPECIFIED FORMULATION 2006 NONE 88 complet ed Left Deltoid (IM), Lot Number:[id number] 10/30 Mary [facility] FLU,3 YRS (HISTORICAL) 2006 DARELL ZENDEJAS 88 complet ed C.WCristi [facility] FLU,3 YRS (HISTORICAL) 2004 SCOTT VANG 88 complet ed C.WCristi [facility] PNEUMOCOCCAL (HISTORICAL) 2004 109 complet ed Right Deltoid (IM), Lot Number: [id number] ex. 09-16-06 Mary [facility] INFLUENZA, UNSPECIFIED FORMULATION 2003 88 complet ed Wayne.WCristi [facility] TETANUS TOXOID, UNSPECIFIED FORMULATION 2003 112 complet ed Left Deltoid lot#[id number] ex 11/[address] [facility] Vital Signs Combined list of inpatient and outpatient Vital Signs from Department of Defense and Veterans Affairs, ranging from 12 months to all on record, depending upon the facility. Vital Sign Value Date Comments Source SYSTOLIC BLOOD PRESSURE 174 05/27/19 25 10:45:11 [facility] DIASTOLIC BLOOD PRESSURE 80 025 10:45:11 [facility] PULSE OXIMETRY 97 05/27/2024 10:45:11 [facility] [...] [facility] Outpatient Encounter [id number] 05/27 [facility] [place] [facility] [place] OFF[facility] O/P EST LOW 20 MIN [id number] Diagnos is: ICD-10- CM I10 Essenti al (primar y) hyperte nsion SAEID CHRISTIANSON 05/27 [facility] IELD Social History Combined list of available smoking, tobacco, and other social history from Department of Defense and Veterans Affairs facilities. Social History Type Response Date Comment Source Tobacco smoking status [place] [facility]-TOBACCO NEVER USED 05/27/2023 [facility] History of tobacco use IA-TOBACCO NEVER USED 05/12/2022 [facility] History of tobacco use VA-TOBACCO NEVER USED 05/30/2021 [facility] History of tobacco use VA-TOBACCO NEVER USED 04/30/2020 [facility] History of tobacco use IA-TOBACCO NEVER USED 11/08/2018 [facility] History of tobacco use VA-TOBACCO NEVER USED 04/27/2018 [facility] History of tobacco use LIFETIME NON-TOBACCO USER 03/25/2017 [place] [facility] [place] [facility] History of tobacco use LIFETIME NON-TOBACCO USER 11/19/2015 [place] History of tobacco use LIFETIME NON-TOBACCO USER 08/30/2014 [place] History of tobacco use LIFETIME NON TOBACCO USER 10/20/2013 NEVER SMOKED. Mary [facility] History of tobacco use LIFETIME NON TOBACCO USER 06/20/2013 NEVER SMOKED. [facility] [...] NON TOBACCO USER 05/15/2011 Mary [facility] History of tobacco use LIFETIME NON TOBACCO USER 04/08/2011 [facility] History of tobacco use LIFETIME NON TOBACCO USER 02/21/2011 [facility] History of tobacco use LIFETIME NON TOBACCO USER 01/21/2011 [facility] History of tobacco use LIFETIME NON TOBACCO USER 07/09/2010 [facility] History of tobacco use LIFETIME NON TOBACCO USER 12/07/2009 never smoked!!! Mary [facility]Z [facility] History of tobacco use LIFETIME NON TOBACCO USER 05/15/2009 Mary [facility] History of tobacco use LIFETIME NON TOBACCO USER 07/14/2008 Mary [facility] History of tobacco use LIFETIME NON TOBACCO USER 03/26/2007 Mary [facility] History of tobacco use LIFETIME NON TOBACCO USER 05/28/2006 Mary [facility] History of tobacco use LIFETIME NON TOBACCO USER 05/13/2005 Mary [facility]CR[facility]Z [facility] History of tobacco use LIFETIME NON TOBACCO USER 06/03/2004 Mary [facility]CR[facility]Z [facility] History of tobacco use LIFETIME NON TOBACCO USER 05/31/2003 Mary [facility] Plan of Care List of future care activities from [facility] facilities. Additional future care activities may be listed in the Assessment and Plan section. Date/Time Care Activity Care Activity Detail Facili ty 05/26/2025 AMBULATORY - MEDICINE AMBULATORY - MEDICI [facility] [place] [facility] Advance Directives List of completed, amended, or rescinded Advance Directives on record at [facility] facilities. An actual copy of the Directive is not included. Date Advance Directive Provider Source 03/14/2013 ADVANCE DIRECTIVE DISCUSSION EFREN ALEMAN DEPT [facility] 03/14/2013 ADVANCE DIRECTIVE [facility] 11/05/2012 ADVANCE DIRECTIVE DISCUSSION V[facility]Y PUCKETT [facility] 02/27/2011 ADVANCE DIRECTIVE DISCUSSION CATRACHITA GAUTAM [facility] 01/16/2011 ADVANCE DIRECTIVE DISCUSSION [facility] 01/06/2011 ADVANCE DIRECTIVE DISCUSSION STEFANY [facility]
--- NOTE | 2025-01-11 09:59 | AM.OFFVISMDC ---
Intake Vital Signs 01/11/25 10:05 Height 5 ft 3 in Weight 162 lb 8 oz BMI 28.8 BP 140/74 H Blood Pressure Location Rt brachial Position Sitting Respiration 13 Pulse 61 Pulse Source Pulse Oximeter Temp 97.3 F Temp Source Oral Pulse Oximetry (%) 99 Oxygen Delivery Method Room Air Intake Visit Reasons: cpe Intake Note: AWV. Patient needs refill on meds. 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: No Allergies Penicillins Allergy (Intermediate, Verified 01/11/25 10:17) Fainting Medication List - Last Reconciled 01/11/25 by Mckenzie Bhatti, [facility]- acetaminophen-codeine 300-30 mg 1 tab PO BID PRN aspirin (Adult Aspirin Regimen) 81 mg PO DAILY blood sugar diagnostic As directed blood-glucose meter As directed clopidogrel 75 mg PO DAILY 90 days famotidine 40 mg PO DAILY fluticasone propionate 50 mcg/actuation 1 spray intranasal DAILY PRN glipizide ER 2.5 mg PO QAM 90 days metoprolol succinate ER 50 mg PO DAILY 90 days nitroglycerin 0.4 mg sublingual Q5M PRN rosuvastatin 40 mg PO DAILY 90 days spironolactone 25 mg PO DAILY 90 days Do you need a note to return to daycare/school/sports/work: No HPI HPI Comments History of Present Illness Details Here today for AWV. The Medicare Annual Wellness Visit (AWV) is a yearly appointment with a health professional to identify health risks and help reduce them and to create or update a personalized prevention plan. During a Medicare AWV, health professionals should also review any current opioid prescriptions, detect any cognitive impairment, and establish or update medical and family history. 74 y/o M with CAD, [place], Stents. Murmur, DM2, GERD, Pancreatitis x 2, Ankylosing Spondylitis, HTN SurgHx: Y FHx: Y SocHx: Nonsmoker, EtOH None Health Maintenance: See scanned preventative medicine assessment with personalized health plan and screening schedule. Colon: cologaurd ordered today Vaccines: Tdap 2019, Needs Shingles and PVC 23 advised to get at pharmacy AAA screen: na EKG: managed by cards [place] of Care: As documented in chart Visual Acuity: glasses, last exam > 3 years ago. New referral placed today for DM eye exam Hearing Screening: [facility] referred for hearing test wears hearing aides ACP: HCP N, ACP working on this now Blank copies of MOLST and HCP provided today Dietary/Nutrition/Exercise Edu provided: Y During the course of the visit the patient was educated and counseled about appropriate screening and preventative services. Patient instructions were provided to the patient in written or electronic format. I have reviewed and verified the above information. History of Present Illness - The patient is a 74-year-old male presenting with an annual Medicare wellness visit. - History of type 2 diabetes mellitus, effectively managed with an A1c of 5.6 using Glipizide. - Coronary artery disease with myocardial infarction, regularly followed by cardiology. Medications include aspirin, Plavix, metoprolol, rosuvastatin, and spironolactone. - Most recent lab results (January 06, 2025) showed normal findings, with specific attention to a GFR of 59 and LDL of 42. - Wearing hearing aids due to hearing loss; requires readjustment due to changes in hearing. - Previous colonoscopy 20 years ago was clear; interested in colorectal cancer home screening. - History of ankylosing spondylitis treated with Tylenol 3. Needs refill. - No recent ocular examination in the past two to three years. - Needs accu-chek or Contour meter; current one no longer covered. Message sent to nurses to generate RX Social History - [facility], particularly [facility]. - The patient lives with a significant other Review of Systems - General: Denies issues except for routine check-up needs. - Ears: Reports hearing loss, notably managed by hearing aids. - Musculoskeletal: Reports ankylosing spondylitis. - Non-contributory for all other systems based on conversation. Physical Exam General: Well developed, well nourished, in no acute distress. Head: Normocephalic, atraumatic. Eyes: Pupils are equal, round and reactive to light and accommodation. Conjunctivae are clear. Vision grossly normal. Ears: TMs clear AU, EACS WNL. Nose: Patent, without discharge. Neck: Supple, no adenopathy or thyromegaly. Breast: Edu on SBE Lungs: Clear to auscultation bilaterally. No rales, rhonchi or wheeze noted. Good air flow in all [place]. Heart: Regular rate and rhythm. No murmurs, click, rubs or gallops are noted. Abdomen: Bowel sounds present in all quadrants. The abdomen is soft, nontender, with no masses or organomegaly noted. No hernias are noted. : Deferred. Reviewed RENEA & recommendations Pulses: Peripheral pulses are equal and palpable bilaterally. Extremities: No clubbing, cyanosis nor edema is noted. Neurologic: Gait and station normal. Cranial Nerves 2-12 intact. Motor strength grossly symmetrical and intact. No sensory loss. Balance normal. Skin: No rashes, ulcers, or lesions noted. Turgor is good. Skin color is good. Hair and nails are without abnormalities. Psych: Normal eye contact, affect and mood appropriate, and normal interactions. Patient is alert and appropriate to context. Results - Labs: A1c of 5.6, normal CBC, electrolytes, GFR 59, LDL 42, normal vitamin D, PSA 3.53. - Urinalysis and microalbumin: Normal results from January 06, 2025. Discussion Notes I discussed with the patient the management of his type 2 diabetes, explaining his current A1c of 5.6 is indicative of good control. We reviewed the continued use of Glipizide. I highlighted the importance of cardiology follow-up and continued medication adherence for coronary artery disease, myocardial infarction, and hypertension management. Additionally, I advised ECBT or colonoscopy considering his screening history. We talked about the referral for an eye exam due to diabetes and the absence of recent ocular exams. We also addressed his hearing aids' need [facility] and the importance of regularly testing and maintaining proper ear hygiene. We discussed returning for follow-up in six months and emphasized contacting us with any changes in his condition. Patient was given time to ask questions. All questions were answered to their satisfaction. Assessment and Plan 1. Type 2 Diabetes Mellitus - Continue Glipizide; A1c is 5.6. Refer for eye exam, get new meter 2. Coronary Artery Disease - Maintain current medications; cardiology follow-up. 3. Hypertension - Continue with current medications. 4. Hearing Loss - [facility]. 5. Ankylosing Spondylitis - Use Tylenol 3 as needed. refill sent 6. Preventive Care - Organize colorectal screening; eye exam referral. Vaccines. RTO 6 MONTHS W/ PCP, ROUTINE FU, LABS 1 WEEK BEFORE, SOONER pRN Patient Instructions - Continue current medications as directed. - [facility]. - Expect a referral call from the eye doctor for an eye exam. - Use the home colorectal screening kit when it arrives. - Report any new or worsening symptoms immediately. Consent. Patient was informed and verbally consented to the use of an ambient scribe for clinic note documentation during this visit. [facility], [facility] Medical History (Updated 01/11/25 @ 10:52 by Mckenzie Bhatti [facility]) Arachnoiditis of spine Heart attack Surgical History (Updated 01/09/25 @ 08:42 by Sujey Broussard) H/O heart artery stent Family History (Updated 01/09/25 @ 08:44 by Sujey Broussard) Mother Heart problem Diabetes Father Heart problem Social History (Updated 01/09/25 @ 08:44 by Sujey Broussard) Housing: Apartment Alcohol intake: never Patient Tobacco Use Status: Never used Tobacco e-Cigarette/Vaping Use: Never Used Second Hand Smoke Exposure: No Current occupational exposures/hazards: No Cognitive needs: No Hearing needs: Yes Vision needs: Yes Questionnaire Medicare Wellness Checkup What [age]?: [age] What gender do you identify with?: male During the past 4 weeks, how much have you been bothered by emotional problems such as feeling anxious, depressed, irritable, sad or downhearted, and blue?: not at all During the past 4 weeks, has your physical & emotional health limited your social activities with family, friends, neighbors, or groups?: not at all During the past 4 weeks, how much bodily pain have you generally had?: no pain During the past 4 weeks, was someone available to help you if you needed & wanted help?: yes, as much as I wanted During the past 4 weeks, what was the hardest physical activity you could do for at least 2 minutes?: light Can you get to places out of walking distance without help? (For eg., can you travel alone on buses, taxis or drive your car?): Yes Can you go shopping for groceries or clothes without someone's help?: Yes Can you prepare your own meals?: Yes Can you do your housework without help?: Yes Because of any health problems, do you need the help of another person with your personal care needs such as eating, bathing, dressing or getting around the house?: No Can you handle your own money without help?: Yes During the past 4 weeks, how would you rate your health in general?: very good During the past 4 weeks how have things been going for you?: pretty well Are you having difficulties driving your car?: no Do you always fasten your seat belt when you are in a car?: yes, usually During past 4 weeks, have you been bothered by the following: never: Falling or dizzy when standing up, Sexual problems?, Trouble eating well?, Teeth or denture problems?, Problems using the telephone? and Tiredness or fatigue? Have you fallen 2 or more times in the past year?: No Are you afraid of falling?: No Are you a smoker?: no During the past 4 weeks, how many drinks of wine, beer, or other alcoholic beverages did you have?: no alcohol at all Do you exercise for about 20 minutes 3 or more times a week?: yes, some of the time Have you been given information to help with the following?: no: Hazards in your house that might hurt you? and no: Keeping track of your medications? How often do you have trouble taking medicines the way you have been told to take them?: I always take medicine as prescribed How confident are you that you can control & manage most of your health problems?: very confident What is your race?: White Activity of Daily Living Bathing - sponge bath, tub bath or shower: receives no assistance (gets in/out by self, if usual bathing means Dressing - getting clothes from closets & drawers, including inner/outer garments & fasteners.: gets clothes & gets completely dressed without help Toileting - going to the 'toilet room' for urine/bowel elimination & cleaning self/arranging clothes: goes to toilet room, cleans self, arranges clothes without help Transfer: moves in & out of bed and chair without help (may use support object) Continence: controls urination/bowel movements completely by self Feeding: feeds self without help Total Score: 0 Information obtained from: patient Using telephone: independent Traveling: independent Shopping: independent Preparing meals: independent Housework: independent Taking medicine: independent Managing money: independent PHQ-9 Over the last 2 weeks, how often have you been bothered by any of the following problems? 1. Little interest or pleasure in doing things: not at all 2. Feeling down, depressed, or hopeless: not at all 3. Trouble falling or staying asleep, or sleeping too much: not at all 4. Feeling tired or having little energy: not at all 5. Poor appetite or overeating: not at all 6. Feeling bad about yourself - or that you are a failure or have let yourself or your family down: not at all 7. Trouble concentrating on things, such as reading the newspaper or watching television: not at all 8. Moving or speaking so slowly that other people could have noticed. Or the opposite - being so fidgety or restless that you have been moving around a lot more than usual: not at all 9. Thoughts that you would be better off or of hurting yourself in some way: not at all Total score: 0 Depression Screening Interpretation: Negative Depression Screening Done: Yes 27916 - PHQ-9 Billing: Yes Source: Developed by Drs. Matt rOtiz, Jerri Clark, Carlo Coppola and colleagues, with an educational divine from [employer]. Physical Exam Vital Signs: Last Vital Signs Temp 97.3 F 01/11/25 10:05 Pulse 61 01/11/25 10:05 Resp 13 01/11/25 10:05 BP 140/74 H 01/11/25 10:05 Pulse Ox 99 01/11/25 10:05 Oxygen Delivery Method Room Air 01/11/25 10:05 BMI result Body Mass Index 28.8 Office Procedures Vision Screening Right Eye: 20/20 Left Eye: 20/20 Bilateral: 20/20 Color: Pass Corrected: Pass (wearing glasses) 26516 - Vision Screening Results AMB Hemoglobin A1c AMB Hemoglobin A1c 5.6 % Last Edit by Miguelina Redding MA on 01/11/25 10:16 Assessment & Plan Assessment & Plan (1) Encounter for subsequent annual wellness visit (AWV) in Medicare patient: Onset Date: ~01/11/25 Code(s): Z00.00 - Encounter for general adult medical examination without abnormal findings (2) Type 2 diabetes mellitus with unspecified complications: Code(s): E11.8 - Type 2 diabetes mellitus with unspecified complications (3) ACP (advance care planning): Code(s): Z71.89 - Other specified counseling (4) Coronary artery disease: Code(s): I25.10 - Atherosclerotic heart disease of [place] coronary artery without angina pectoris Qualifiers: Coronary Disease-Associated Artery/Lesion type: [place] artery [place] vs. transplanted heart: [place] heart Associated angina: without angina Qualified Code(s): I25.10 - Atherosclerotic heart disease of [place] coronary artery without angina pectoris (5) Hyperlipidemia: Code(s): E78.5 - Hyperlipidemia, unspecified Qualifiers: Hyperlipidemia type: mixed hyperlipidemia Qualified Code(s): E78.2 - Mixed hyperlipidemia (6) Hypertension: Code(s): I10 - Essential (primary) hypertension Qualifiers: Hypertension type: secondary to endocrine disorders Qualified Code(s): I15.2 - Hypertension secondary to endocrine disorders Plan . Orders: Orders Comprehensive Met. Panel 6 Months E11.8 - Type 2 diabetes mellitus with unspecified complications, E78.5 - Hyperlipidemia, unspecified, I10 - Essential (primary) hypertension, I25.10 - Atherosclerotic heart disease of [place] coronary artery without angina pectoris Prostate Specific Antigen Scr 6 Months E11.8 - Type 2 diabetes mellitus with unspecified complications, E78.5 - Hyperlipidemia, unspecified, I10 - Essential (primary) hypertension, I25.10 - Atherosclerotic heart disease of [place] coronary artery without angina pectoris Lipid Panel 6 Months E11.8 - Type 2 diabetes mellitus with unspecified complications, E78.5 - Hyperlipidemia, unspecified, I10 - Essential (primary) hypertension, I25.10 - Atherosclerotic heart disease of [place] coronary artery without angina pectoris Microalbumin, Random (w Creat) 6 Months E11.8 - Type 2 diabetes mellitus with unspecified complications AMB Hemoglobin A1c Today E11.8 - Type 2 diabetes mellitus with unspecified complications, E11.9 - Type 2 diabetes mellitus without complications, Z13.9 - Encounter for screening, unspecified Hemoglobin A1c 6 Months E11.8 - Type 2 diabetes mellitus with unspecified complications, E78.5 - Hyperlipidemia, unspecified, I10 - Essential (primary) hypertension, I25.10 - Atherosclerotic heart disease of [place] coronary artery without angina pectoris Referrals Cologuard Test Z12.11 - Encounter for screening for malignant neoplasm of colon, Z12.12 - Encounter for screening for malignant neoplasm of rectum Ophthalmology Referral E11.8 - Type 2 diabetes mellitus with unspecified complications Medications: Changed From blood-glucose meter As directed To blood-glucose meter As directed, ACCUCHEK OR CONTOUR WHATEVER IS COVERED 1 ea 0RF From blood sugar diagnostic As directed To blood sugar diagnostic As directed, ACCUCHEK OR CONTOUR WHATEVER IS COVERED 30 ea 0RF Refilled acetaminophen-codeine 300-30 mg 1 tab PO BID PRN 30 tabs 0RF pain Patient Instructions: Please stop by a local pharmacy and asked about the shingles vaccine and the pneumococcal vaccine as you are due. Health screenings for men You should visit your health care provider regularly, even if you feel healthy. The purpose of these visits is to: Screen for medical issues Assess your risk for future medical problems Encourage a healthy lifestyle Update vaccinations and other preventive care services Help you get to know your provider in case of an illness Information Even if you feel fine, you should still see your provider for regular checkups. These visits can help you avoid problems in the future. For example, the only way to find out if you have high blood pressure is to have it checked regularly. High blood sugar and high cholesterol level also may not have any symptoms in the early stages. Simple blood tests can check for these conditions. There are specific times when you should see your provider or receive specific health screenings. The [place] Preventive Services Task Force publishes a list of recommended screenings. Below are screening guidelines for men ages 40 to 64. BLOOD PRESSURE SCREENING Have your blood pressure checked at least once every year. Watch for blood pressure screenings in your area. Ask your provider if you can stop in to have your blood pressure checked. Ask your provider if you need your blood pressure checked more often if: You have diabetes, heart disease, kidney problems, or are overweight or have certain other health conditions You have a first-degree relative with high blood pressure You are Black Your blood pressure top number is from 120 to 129 mm Hg, or the bottom number is from 70 to 79 mm Hg If the top number is 130 mm Hg or greater or the bottom number is 80 mm Hg or greater, this is considered stage 1 hypertension. Schedule an appointment with your provider to learn how you can lower your blood pressure. Effects of age on blood pressure CHOLESTEROL SCREENING Cholesterol screening should begin at age 35 for men with no known risk factors for coronary heart disease. Repeat cholesterol screening should take place: Every 5 years for men with normal cholesterol levels More often if changes occur in lifestyle (including weight gain and diet) More often if you have diabetes, heart disease, kidney problems, or certain other conditions COLORECTAL CANCER SCREENING If you are under age 45, talk to your provider about getting screened. You may need to be screened if you have a strong family history of colon cancer or polyps. Screening may also be considered if you have risk factors such as a history of inflammatory bowel disease or polyps. If you are age 45 to 75, you should be screened for colorectal cancer. There are several screening tests available: A stool-based fecal occult blood (gFOBT) or fecal immunochemical test (FIT) every year A stool sDNA test every 1 to 3 years Flexible sigmoidoscopy every 5 years or every 10 years with stool testing FIT done every year CT colonography (virtual colonoscopy) every 5 years Colonoscopy every 10 years You may need a colonoscopy more often if you have risk factors for colorectal cancer, such as: Ulcerative colitis A personal or family history of colorectal cancer A history of growths in your colon called adenomatous polyps DENTAL EXAM Go to the dentist once or twice every year for an exam and cleaning. Your dentist will evaluate if you have a need for more frequent visits. DIABETES SCREENING All adults who do not have risk factors for diabetes should be screened starting at age 35 and repeated every 3 years. If you have other risk factors for diabetes, such as a first degree relative with diabetes, overweight or obesity, high blood pressure, prediabetes, or a history of heart disease, you may be tested more often. If you are overweight and have other risk factors, such as high blood pressure and are planning to become , screening is recommended. EYE EXAM Have an eye exam every 2 to 4 years ages 40 to 54 and every 1 to 3 years ages 55 to 64. Your provider may recommend more frequent eye exams if you have vision problems or glaucoma risk. Have an eye exam that includes an examination of your retina (back of your eye) at least every year if you have diabetes. IMMUNIZATIONS Commonly needed vaccines include: Flu shot: get one every year COVID-19 vaccine: ask your provider what is best for you Tetanus-diphtheria and acellular pertussis (Tdap) vaccine: have as one of your tetanus-diphtheria vaccines if you did not receive it as an adolescent Tetanus-diphtheria: have a booster (or Tdap) every 10 years Varicella vaccine: receive 2 doses if you never had chickenpox or the varicella vaccine and were born in 1979 or after Hepatitis B vaccine: receive 2, 3, or 4 doses, depending on your exact circumstances, if you did not receive these as a child or adolescent, until age 59 Shingles (herpes zoster) vaccine: at or after age 50 Ask your provider if you should receive other immunizations, especially if you have certain medical conditions, such as diabetes or are at increased risk for some diseases such as pneumonia. INFECTIOUS DISEASE SCREENING Screening for hepatitis C: all adults ages 18 to 79 should get a one-time test for hepatitis C. Screening for human immunodeficiency virus (HIV): all people ages 15 to 65 should get a one-time test for HIV. Depending on your lifestyle and medical history, you may need to be screened for infections such as syphilis, chlamydia, and other infections. LUNG CANCER SCREENING You should have an annual screening for lung cancer with low-dose computed tomography (LDCT) if: You are age 50 to 80 years AND You have a 20 pack-year smoking history AND You currently smoke or have quit within the past 15 years OSTEOPOROSIS SCREENING If you are age 50 to 64 and have risk factors for osteoporosis, you should discuss screening with your provider. Risk factors can include long-term steroid use, low body weight, smoking, heavy alcohol use, having a fracture after age 50, or a family history of hip fracture or osteoporosis. Osteoporosis PHYSICAL EXAM All adults should visit their provider from time to time, even if they are healthy. The purpose of these visits is to: Screen for diseases Assess risk of future medical problems Encourage a healthy lifestyle Update vaccinations and other preventive care services Maintain a relationship with a provider in case of an illness Your height, weight, and body mass index (BMI) should be checked at every exam. During your exam, your provider may ask you about: Depression and anxiety Diet and exercise Alcohol and tobacco use Safety, such as use of seat belts and smoke detectors Your medicines and risk for interactions PROSTATE CANCER SCREENING If you're 55 through 69 years old, before having the test, talk to your provider about the pros and cons of having a PSA test. Ask about: Whether screening decreases your chance of dying from prostate cancer. Whether there is any harm from prostate cancer screening, such as side effects from testing or overtreatment of cancer when discovered. Whether you have a higher risk of prostate cancer than others. If you are age 55 or younger, screening is not generally recommended. You should talk with your provider about if you have a higher risk for prostate cancer. Risk factors include: Having a family history of prostate cancer (especially a brother or father) Being If you choose to be tested, the PSA blood test is repeated over time (yearly or less often), though the best frequency is not known. Prostate examinations are no longer routinely done on men with no symptoms. Prostate cancer SKIN EXAM Your provider may check your skin for signs of skin cancer, especially if you're at high risk. People at high risk include those who have had skin cancer before, have close relatives with skin cancer, or have a weakened immune system. TESTICULAR EXAM The [place] Preventive Services Task Force (USPSTF) now recommends against performing testicular self-exams. Doing testicular self-exams has been shown to have little to no benefit. Quality Reporting (2019) Adult ([facility] 138/2/) Smoking risk assessment performed?: Yes Patient Tobacco Use Status: Never used Tobacco Depression screening performed: Yes Screen Results: Yes Negative screen Recommended changes not done: EKG (managed by cards) Systolic BP not done?: No Diastolic BP not done?: No BMI screening not done: No Sexual Activity Screening ([facility] 153) Sexually active?: No Immunizations ([facility] 147, 117) Annual Influenza Vaccine: No Measles Antibody Test: No Mumps Antibody Test: No Rubella Antibody Test: No Varicella Antibody Test: No Anti Hepatitis A IgG Antigen test: No Anti Hepatitis B Virus Surface Ab test: No Fall Risk Screening ([facility] 139) Last assessed Fall Risk: 01/11/25 Fall risk assessment: 1 Fall in past year Dementia Assessment ([facility] 149) Cognitive assessment recorded: Yes Assessment of cognition with standardized tool: Yes Depression/Bipolar (159/160/161/177) PHQ-9: Total score: 0 Ophthalmol:Cataracts Visual Acuity (133) Visual acuity exam performed: Yes (see results) Coding Level of Care Code Medicare Subsequent (G0439) Est Pt Level 4 (69173) Diagnoses Encounter for subsequent annual wellness visit (AWV) in Medicare patient Z00.00 Type 2 diabetes mellitus with unspecified complications E11.8 ACP (advance care planning) Z71.89 Coronary artery disease involving [place] coronary artery of [place] heart without angina pectoris I25.10 Coronary Disease-Associated Artery/Lesion type: [place] artery [place] vs. transplanted heart: [place] heart Associated angina: without angina Mixed hyperlipidemia E78.2 Hyperlipidemia type: mixed hyperlipidemia Hypertension due to endocrine disorder I15.2 Hypertension type: secondary to endocrine disorders CPT Codes Advance Care Planning - Time spent: 1-15 minutes, not on file ([id number]) Vision Screening - Vision Screenin - Vision Screening ([id number]) Additional Codes PHQ-9 - 52520 - PHQ-9 Billing: Yes ([id number]) Advance Care Planning Advance Care Planning discussion: Exists, not on file Date of discussion: 01/11/25 Forms completed: Health Care Proxy, MOLST and Living will Time spent: 1-15 minutes, not on file Actual minutes spent: 5
[2025-01-11 10:05] VITALS: BP 140/74; PULSE 61; RESP 13; TEMP 36.3; O2SAT 99; BMI 28.8
--- OUTSIDE RECORDS SUMMARY | 2025-01-11 10:41 | XMS_ITS | Clinical Summary ---
Author Organization [facility] Address [address] [place] [address] Phone Care Team Providers Care Associate Merchant Name Role Phone John Mendez MD Primary Care Provider [phone] Medications metoprolol tartrate (LOPRESSOR) 50 mg tablet [...] Type Department Care Team Description 12/12/2024 Telephone [place] [address] [place] [address] John Mendez MD Referral ( Attempt [...] COLONOSCOPY Medical History Medical History Date Comments SC, old 01/19/2017 DX:SC, old; COMM ENT: [place] 2003, [place] (STEMI) 05/2016 [facility], has 8 stents Post-nasal drip 01/19/2017 DX:Post-nasal dr ip Grief reaction DX:Grief reactio n; COMMENT: 2011 Ankylosing spondylitis ([facility] V24, [facility] V28) 01/19/2017 DX:Ankylosing spondylitis (H CC); COMMENT: [...] diabetes mellitus wit h peripheral vascular disease ([facility] V24, [facility] V28) 01/19/2017 DX:Type 2 diabetes mellitus with peripheral vascular disease (HCC) PVD (peripheral vascular dis ease) ([facility] V24) 04/29/2017 DX:PVD (peripheral vascular disease) ([facility]) HTN (hypertension) 08/17/2017 DX:HTN (hyper tension) Arthritis [...] age to complete this topic Care Teams Associate Merchant Relationship Specialty Start Date End Date John Mendez MD [address] [place] [address] Dr Eden [place] PCP - General Family Medicine 10/24/24
== END 2025-01-11 10:49 | disposition home or self-care (01) ==
LOC: HO.HMCFM 09:51
PROVIDERS: PCP Family Medicine; Visit Provider Nurse Practitioner Family
DX: Z00.00 Encounter for general adult medical examination without abnormal findings (principal); E11.8 Type 2 diabetes mellitus with unspecified complications; Z71.89 Other specified counseling; E11.9 Type 2 diabetes mellitus without complications; I25.10 Atherosclerotic heart disease of native coronary artery without angina pectoris; E78.2 Mixed hyperlipidemia; I15.2 Hypertension secondary to endocrine disorders; Z01.00 Encounter for examination of eyes and vision without abnormal findings

== ENCOUNTER → 2025-01-11 09:49 | Outpatient (BNVA) | payer MEDICARE, SELFPAY | PROVIDERS: PCP Family Medicine; Visit Provider Nurse Practitioner Family | DX: Z00.01 Encounter for general adult medical examination with abnormal findings (principal); I15.2 Hypertension secondary to endocrine disorders; E11.8 Type 2 diabetes mellitus with unspecified complications; I25.10 Atherosclerotic heart disease of native coronary artery without angina pectoris; E78.2 Mixed hyperlipidemia; Z71.89 Other specified counseling | CPT/HCPCS: 83036; 96127; 99212 ==

== ENCOUNTER 2025-01-26 10:10 | Outpatient (REF) | payer MEDICARE, SELFPAY ==
[2025-01-26 14:59] LABS: Resp Syncy Virus RNA Qual PCR NEGATIVE (Negative); SARS COV2 PCR INHOUSE NEGATIVE (Negative)
== END 2025-01-26 10:11 | disposition home or self-care (01) ==
LOC: HO.LNP 10:10
PROVIDERS: PCP Family Medicine; Visit Provider Internal Medicine
DX: Z03.818 Encounter for observation for suspected exposure to other biological agents ruled out (principal); J32.9 Chronic sinusitis, unspecified; J01.00 Acute maxillary sinusitis, unspecified
CPT/HCPCS: 87637; 99212

== ENCOUNTER 2025-01-26 10:10 | Outpatient (AMB) | payer MEDICARE, SELFPAY ==
--- NOTE | 2025-01-26 10:11 | MHC.PC.OV ---
Vital Signs 01/26/25 10:15 Height 5 ft 3 in Weight 160 lb 2 oz BMI 28.4 BP 120/70 Blood Pressure Location Rt brachial Position Sitting Respiration 14 Pulse 81 Pulse Source Pulse Oximeter Temp 97.2 F Temp Source Temporal Artery Scan Pulse Oximetry (%) 97 Oxygen Delivery Method Room Air Intake Visit Reasons: Possible sinus infection Intake Note: Pool presents in the office today for a possible sinus infection. Patient is suffering from PND, Cough. Allergies Penicillins Allergy (Intermediate, Verified 01/26/25 10:13) Fainting Tobacco use date assessed: 01/26/25 Fall risk assessment: No Falls in past year Last assessed Fall Risk: 01/26/25 Dental Screening Dental Screen Date: 01/26/25 Did you have a dental visit in the last 12 months?: Yes Did you have a dental problem in the last 6 months where you did not have access to dental care?: No Was dental information given to patient?: Patient has dentist HPI HPI Comments History of Present Illness Details 74 year old male with past medical history of DM, allergies presenting for sick visit Has allergies. Increased sinus congestion, increased post nasal drip and development of hoarseness and upper chest burning. Infrequent cough, no shortness of breath, no fevers. No known sick contacts ROS see HPI PHYSICAL EXAM: GENERAL: Alert and oriented x 3. NAD EYES: EOMI. Anicteric. HENT: Moist mucous membranes. Bilateral clear middle ear effusion, maxillary sinus ttp, erythematous oropharynx without exudate LUNGS: Clear to auscultation bilaterally. CARDIOVASCULAR: Regular rate and rhythm. ABDOMEN: Soft, non-tender +bs EXTREMITIES: No edema. Non-tender. SKIN: No rashes or lesions. Warm. NEUROLOGIC: No focal neurological deficits. CN II-XII grossly intact PSYCHIATRIC: Cooperative. Appropriate mood and affect [facility] Medical History Heart attack Arachnoiditis of spine Surgical History H/O heart artery stent Family History Mother Heart problem Diabetes Father Heart problem Social History Housing: Apartment Alcohol intake: never Patient Tobacco Use Status: Never used Tobacco e-Cigarette/Vaping Use: Never Used Second Hand Smoke Exposure: No Use of substances other than those prescribed or required for medical reasons: No Current occupational exposures/hazards: No Cognitive needs: No Hearing needs: Yes Vision needs: Yes Questionnaire Thrive Questionnaire Date Thrive assessed: 06/15/24 FRAN-7 AMB Questionnaire FRAN-7 Date FRAN - 7 assessed: 06/15/24 Source: Developed by Drs. Matt Ortiz, Jerri Clark, Carlo Coppola and colleagues, with an educational divine from [employer]. Physical exam (Primary Care) Vital Signs: Last Vital Signs Temp 97.2 F 01/26/25 10:15 Pulse 81 01/26/25 10:15 Resp 14 01/26/25 10:15 BP 120/70 01/26/25 10:15 Pulse Ox 97 01/26/25 10:15 Oxygen Delivery Method Room Air 01/26/25 10:15 BMI result Body Mass Index 28.4 Tobacco/Smoking Status: Tobacco use Status Tobacco use date assessed 01/26/25 01/26/25 10:18 Patient Tobacco Use Status Never used Tobacco 01/26/25 10:18 e-Cigarette/Vaping Use Never Used 01/26/25 10:18 Thrive Assessment: Date of Thrive Assessment Date Thrive assessed 06/15/24 01/26/25 10:18 Coding Level of Care Code Est Pt Level 4 (07785) Diagnoses Acute non-recurrent maxillary sinusitis J01.00 Sinusitis location: maxillary Chronicity: acute Recurrence: non-recurrent Assessment & Plan Assessment & Plan (1) Sinusitis: Code(s): J32.9 - Chronic sinusitis, unspecified Category: Medical Qualifiers: Sinusitis location: maxillary Chronicity: acute Recurrence: non-recurrent Qualified Code(s): J01.00 - Acute maxillary sinusitis, unspecified Plan Sinusitis. No fevers. COVID testing sent. [facility] ordered Follow up for persistent or worsening symptoms Orders: Orders SARS-CoV2/FLU/RSV Today J32.9 - Chronic sinusitis, unspecified Medications: New azithromycin For 250 mg dose pack: take 500 mg today (day 1), then 250 mg for 4 days (days 2-5) PO 6 tabs 0RF
[2025-01-26 10:15] VITALS: BP 120/70; PULSE 81; RESP 14; TEMP 36.2; O2SAT 97; BMI 28.4
--- OUTSIDE RECORDS SUMMARY | 2025-01-26 11:26 | XMS_ITS | Clinical Summary ---
Author Organization [facility] Address [address] [place] [address] Phone Care Team Providers Care Commercial Pest Control Representative Name Role Phone John Mendez MD Primary [...] Type Department Care Team Description 12/12/2024 Telephone [place] [address] [place] [address] John Mendez MD from Last 3 Months Surgical History Surgery Date Site/Laterality Comments HERNIA REPAIR 08/28/2015 PROCEDURE: HISTORICAL HERNIA REPAIR/MARILIN CARDIAC CATHETERIZATION 06/16/2016 Left PROCEDURE: HISTORICAL CARDIAC CATH; COMMENT: late presenting STEMI. EF 45% TONSILLECTOMY 1954 PROCEDURE: HISTORICAL TONSILLECTOMY OTHER SURGICAL HISTORY 06/2013 PROCEDURE: ---- OTHER ----; COMMENT: cyst removed from posterior neck COLONOSCOPY PROCEDURE: HISTORICAL COLONOSCOPY Medical History Medical History Date Comments [place], old 01/19/2017 DX:[place], old; COMM ENT: [place] 2003, [place] (STEMI) 05/2016 [facility], has 8 stents Post-nasal drip 01/19/2017 DX:Post-nasal dr ip Grief reaction DX:Grief reactio n; COMMENT: 2011 Ankylosing spondylitis ([facility] V24, [facility] V28) 01/19/2017 DX:Ankylosing spondylitis (H CC); COMMENT: [...] diabetes mellitus wit h peripheral vascular disease ([facility] V24, [facility] V28) 01/19/2017 DX:Type 2 diabetes mellitus with peripheral vascular disease (HCC) PVD (peripheral vascular dis ease) ([facility] V24) 04/29/2017 DX:PVD (peripheral vascular disease) ([facility]) HTN (hypertension) 08/17/2017 DX:HTN (hyper tension) Arthritis [...] Patients (1 - 1-dose 75+ series) 09/25/2023 Depression Screening 05/25/2024 Diabetes: Blood Sugar Control Test (HGBA1C) 06/30/2024 12/29/2023 Diabetes: Annual GFR (Glomerular Filtration Rate) 12/28/2024 12/29/2023 Hypertension/CHF/CAD Annual BMP Blood Test 12/28/2024 12/29/2023 COVID-19 Vaccine ( season) 2025 04/05/2021, 09/27/2020, 08/30/2020 Influenza Vaccine (#1) 2025 2, 02/11/2021, 02/21/2019, Additional history exists DTaP,Tdap,and Td [...] age to complete this topic Care Teams Commercial Pest Control Representative Relationship Specialty Start Date End Date John Mendez MD [address] [place] [address] Dr Eden MA PCP - General Family Medicine 10/24/24
== END 2025-01-26 10:38 | disposition home or self-care (01) ==
LOC: HO.HMCFM 10:10
PROVIDERS: PCP Family Medicine; Visit Provider Internal Medicine
DX: J01.00 Acute maxillary sinusitis, unspecified (principal)

== ENCOUNTER 2025-03-22 08:40 | Outpatient (REF) | payer MEDICARE, SELFPAY ==
[2025-03-22 11:31] LABS: MANUAL DIFF FLAG NO
[2025-03-22 11:53] LABS: Hematocrit 46.1 % (42.0-52.0); Hemoglobin 15.6 g/dl (14.0-18.0); Imm Gran Abs Auto 0.04 X10*3/uL (0.00-0.03); Imm Gran Pct Auto 0.4 % (0.0-0.4); Lymphocytes Absolute Auto 1.9 X10*3/uL (1.2-4.9); Mean Corpuscular HGB Conc 33.8 g/dl (31.0-36.0); Mean Corpuscular Hemoglobin 30.2 pg (27.0-33.0); Mean Corpuscular Volume 89.2 fL (80.0-98.0); NRBC Abs Auto 0.000 X10*3/uL (0.0-0.012); NRBC Pct Auto 0.0 /100WBC (0.0-0.2); Platelet Count 172 X10*3/uL (160-400); Red Blood Count 5.17 X10*6/uL (4.60-5.80); White Blood Count 9.0 X10*3/uL (4.8-10.8)
[2025-03-22 12:23] LABS: Alanine Aminotransferase 23 U/L (0-40); Albumin Level 4.2 g/dL (3.5-5.0); Alkaline Phosphatase 97 U/L (39-117); Anion Gap 10 (12-20); Aspartate Amino Transferase 38 U/L (5-37); Blood Urea Nitrogen 18 mg/dL (9-16); Calcium 10.0 mg/dL (8.4-10.2); Carbon Dioxide 28 mmol/L (22-29); Chloride 104 mmol/L (96-108); Estimated Glomerular Filt Rate > 60; Potassium 4.2 mmol/L (3.3-5.1); Sodium 138 mmol/L (135-145); Total Protein 7.1 g/dL (6.5-8.0); Uric Acid 6.1 mg/dL (3.4-7.0)
[2025-03-22 12:56] LABS: Erythrocyte Sedimentation Rate 13 MM/HR (0-15)
== END 2025-03-22 08:41 | disposition home or self-care (01) ==
LOC: HO.WFDLDS 08:40
PROVIDERS: PCP Family Medicine; Visit Provider Family Medicine
DX: Z00.00 Encounter for general adult medical examination without abnormal findings (principal); M10.9 Gout, unspecified
CPT/HCPCS: 36415; 80053; 84550; 85025; 85652; 99212

== ENCOUNTER 2025-03-22 08:40 | Outpatient (AMB) | payer MEDICARE, SELFPAY ==
--- NOTE | 2025-03-22 08:49 | MHC.PC.OV ---
Vital Signs 03/22/25 08:55 Height 5 ft 3 in Weight 162 lb 4 oz BMI 28.7 BP 138/78 Blood Pressure Location Lt brachial Position Sitting Respiration 14 Pulse 90 Pulse Source Pulse Oximeter Temp 97.4 F Temp Source Temporal Artery Scan Pulse Oximetry (%) 98 Oxygen Delivery Method Room Air Intake Visit Reasons: gout flare up / Intake Note: Pool presents in the office today for a gout flare up. Allergies Penicillins Allergy (Intermediate, Verified 03/22/25 08:53) Fainting Medication List - Last Reconciled 03/22/25 by John Mendez MD [Accuchek Guide lancets check blood glucose daily] [Accuchek Guide meter check blood glucose once daily] [Accuchek Guide test strips test blood glucose once daily] acetaminophen-codeine 300-30 mg 1 tab PO BID PRN aspirin (Adult Aspirin Regimen) 81 mg PO DAILY blood sugar diagnostic As directed, ACCUCHEK OR CONTOUR WHATEVER IS COVERED blood-glucose meter As directed, ACCUCHEK OR CONTOUR WHATEVER IS COVERED clopidogrel 75 mg PO DAILY 90 days famotidine 40 mg PO DAILY fluticasone propionate 50 mcg/actuation 1 spray intranasal DAILY PRN glipizide ER 2.5 mg PO QAM 90 days metoprolol succinate ER 50 mg PO DAILY 90 days rosuvastatin 40 mg PO DAILY 90 days spironolactone 25 mg PO DAILY 90 days Tobacco use date assessed: 03/22/25 Dental Screening Dental Screen Date: 03/22/25 Did you have a dental visit in the last 12 months?: No Did you have a dental problem in the last 6 months where you did not have access to dental care?: No Was dental information given to patient?: Patient declined HPI gout flare up / HPI Details 74 y/o male presents today with complaints of a gout flare-up. Gout flare-up at R great toe. Has been taking tylenol for pain. Notes prednisone taper has worked for him in the past. HPI Comments History of Present Illness Details Documentation assistance for John Mendez MD, was provided by Bhaskar Smith,[employer] Crewmember on 03/21/2025 at 9:47 AM EST. I, Dr. Mendez, have read, observed, and verified documentation. ? [facility] Medical History Heart attack Arachnoiditis of spine Surgical History H/O heart artery stent Family History (Updated 03/22/25 @ 08:54 by Nica Hernandez [facility]) Mother Heart problem Diabetes Father Heart problem Social History (Updated 03/22/25 @ 08:55 by Nica Hernandez CMA) Housing: Apartment Alcohol intake: never Patient Tobacco Use Status: Never used Tobacco e-Cigarette/Vaping Use: Never Used Second Hand Smoke Exposure: No Use of substances other than those prescribed or required for medical reasons: No Current occupational exposures/hazards: No Cognitive needs: No Hearing needs: Yes Vision needs: Yes Questionnaire Thrive Questionnaire Date Thrive assessed: 06/15/24 I am a: Patient What is your living situation today?: I have a steady place to live Within the past 12 months, did the food you bought not last and you didn't have the money to get more?: Never true Within the past 12 months, did you worry whether your food would run out before you got money to buy more?: I choose not to answer this question Do you have trouble paying for medicines?: No Do you have trouble getting transportation to medical appointments?: No Do you have trouble paying your heating and electricity bill?: I choose not to answer this question Do you have trouble taking care of your child, family member or friend?: I choose not to answer this question Do you have trouble with day-to-day activities such as bathing, preparing meals, shopping, managing finances, etc.?: No Are you currently unemployed and looking for a job?: No Are you interested in more education?: No Please select the resources that you would like help with: None Currently or been in a relationship where the following occur: I choose not to answer THRIVE Score: 0 FRAN-7 AMB Questionnaire FRAN-7 Date FRAN - 7 assessed: 06/15/24 Source: Developed by Drs. Matt Ortiz, Jerri Clark, Carlo Coppola and colleagues, with an educational divine from [employer]. Review of Systems Const Denies chills, Denies fatigue, Denies fever(s), Denies headache(s) and Denies weakness ENT Denies dizziness and Denies headache(s) Card Denies dyspnea Resp Denies cough, Denies dyspnea, Denies wheezing and Denies other (shortness of breath) Musc Denies numbness and Denies tingling Neuro Denies dizziness, Denies headache(s), Denies numbness, Denies tingling and Denies weakness Psych Denies anxiety and Denies depression Endo Denies fatigue Aller/Immun Denies wheezing Physical exam (Primary Care) Vital Signs: Last Vital Signs Temp 97.4 F 03/22/25 08:55 Pulse 90 03/22/25 08:55 Resp 14 03/22/25 08:55 BP 138/78 03/22/25 08:55 Pulse Ox 98 03/22/25 08:55 Oxygen Delivery Method Room Air 03/22/25 08:55 BMI result Body Mass Index 28.7 Tobacco/Smoking Status: Tobacco use Status Tobacco use date assessed 03/22/25 03/22/25 08:57 Patient Tobacco Use Status Never used Tobacco 03/22/25 08:55 e-Cigarette/Vaping Use Never Used 03/22/25 08:55 Thrive Assessment: Date of Thrive Assessment Date Thrive assessed 06/15/24 03/22/25 08:51 Currently or been in a relationship where the following occur: I choose not to answer Const General: well developed; No acute distress Nutritional Appearance: well nourished Orientation/consciousness: patient oriented x3 HENMT Head: Yes normocephalic and Yes atraumatic Eyes General: appearance normal, both eyes and all related structures Pupils: Equal, round and reactive pupils present EOM: EOMs intact bilaterally Resp Effort & Inspection: normal respiratory effort Neuro General: patient oriented x3 and gait normal Cranial nerves: Yes Equal, round and reactive pupils present Psych Affect: normal affect Coding Level of Care Code Est Pt Level 3 (12152) Diagnoses Gout flare M10.9 Assessment & Plan Assessment & Plan (1) Gout flare: Code(s): M10.9 - Gout, unspecified Category: Medical Plan: Gout flare-up at right great toe and MTP joint. He does not take NSAIDs due to clopidogrel therapy Will give him a script for a prednisone taper which has worked for him past. Watch for increases in blood sugar Checking CBC and uric acid levels Call or return to office if not improving Orders: Orders Comprehensive Met. Panel Today M10.9 - Gout, unspecified Uric Acid Today M10.9 - Gout, unspecified Complete Blood Count Auto Diff Today - Gout, unspecified, Z00.00 - Encounter for general adult medical examination without abnormal findings Erythrocyte Sedimentation Rate Today - Gout, unspecified Medications: New prednisone 4 tabs daily for 4 days, 3 tabs daily for 2 days, 2 tabs daily for 2 days, 1 tab daily for 2 days PO daily; 28 tabs 0RF 10 days - Gout, unspecified Refilled metoprolol succinate ER 50 mg PO DAILY 90 tabs 3RF 90 days - Gout, unspecified
[2025-03-22 08:55] VITALS: BP 138/78; PULSE 90; RESP 14; TEMP 36.3; O2SAT 98; BMI 28.7
--- OUTSIDE RECORDS SUMMARY | 2025-03-22 09:19 | XMS_ITS | Clinical Summary ---
Author Organization [facility] Address [address] [facility] [place] [address] Phone Care Team Providers Care Inspector Crystal Name Role Phone John Mendez MD Primary [...] time each day. 90 tablet 05/10/2024 Active Surgical History Surgery Date Site/Laterality Comments HERNIA REPAIR 08/28/2015 PROCEDURE: HISTORICAL HERNIA REPAIR/MARILIN CARDIAC CATHETERIZATION 06/16/2016 Left PROCEDURE: HISTORICAL CARDIAC CATH; COMMENT: late presenting STEMI. EF 45% TONSILLECTOMY 1954 PROCEDURE: HISTORICAL TONSILLECTOMY OTHER SURGICAL HISTORY 06/2013 PROCEDURE: ---- OTHER ----; COMMENT: cyst removed from posterior neck COLONOSCOPY PROCEDURE: HISTORICAL COLONOSCOPY Medical History Medical History Date Comments [place], old 01/19/2017 DX:[place], old; COMM ENT: [place] 2004, [place] (STEMI) 05/2016 [facility], has 8 stents Post-nasal drip 01/19/2017 DX:Post-nasal dr ip Grief reaction DX:Grief reactio n; COMMENT: 2011 Ankylosing spondylitis ([facility] V24, [facility] V28) 01/19/2017 DX:Ankylosing spondylitis [...] diabetes mellitus wit h peripheral vascular disease ([facility] V24, [facility] V28) 01/19/2017 DX:Type 2 diabetes mellitus with peripheral vascular disease (HCC) PVD (peripheral vascular dis ease) ([facility] V24) 04/29/2017 DX:PVD (peripheral vascular disease) ([facility]) HTN (hypertension) 08/17/2017 DX:HTN (hyper tension) Arthritis [...] 04/05/2021, 09/27/2020, 08/30/2020 Influenza Vaccine (#1) 2025 , 02/11/2021, 02/21/2019, [...] age to complete this topic Care Teams Inspector Crystal Relationship Specialty Start Date End Date John Mendez MD [address] [place] [address] Dr Cheung [facility] [place] PCP - General Family Medicine 10/24/24
== END 2025-03-22 09:50 | disposition home or self-care (01) ==
LOC: HO.HMCFM 08:42
PROVIDERS: PCP Family Medicine; Visit Provider Family Medicine
DX: M10.9 Gout, unspecified (principal)

== ENCOUNTER → 2025-04-06 14:34 | Outpatient (REF) | payer MEDICARE, SELFPAY ==
--- NOTE | 2025-04-06 14:37 | CA_ITS ---
Transthoracic Echocardiogram Patient (Last, First, Middle): Pool Doss, Gender: Male Date of : 1950 Age: 74 Procedure Date: 04/06/2025 Procedure Type: Transthoracic Echocardiogram Location: OP Height: 160.02 cm Weight: 73.48 kg BSA: 1.77 m2 Heart Rate: 58 bpm BP: 138 / 78 mmHg Family Practice Nurse Practitioner: SB Referring MD: Abel Hodge MD Chip Person: Carson Shook MD Symptoms: I25.10 - Atherosclerotic heart disease of [place] coronary artery without... Study Quality: Fair ECG Rhythm: Bradycardia Conclusions: - 1. Low normal LV ejection fraction 50-55% with impaired relaxation filling pattern with underlying regional wall motion abnormalities suggestive of coronary disease 2. Normal cardiac valvular Dopplers with mild mitral annular calcification 3. No gross pericardial effusion Findings Procedure Information Contrast agent, definity, is being given per protocol without apparent complications. Left Ventricle Normal left ventricular cavity size. There is normal left ventricular wall thickness. The left ventricular systolic function is low normal. The visually estimated ejection fraction is between 50-55%. Spectral Doppler is indicative of an impaired relaxation filling pattern. Wall Motion Rest Echo Findings The basal inferior, mid inferior, and basal inferolateral segments are hypokinetic. All other scored wall segments showed normal motion. Right Ventricle Normal right ventricular cavity size and systolic function. Atria The left atrium is normal in size. There is no evidence of interatrial shunt. The right atrium is normal in size. Aortic Valve Normal aortic valve structure and function. There is no aortic valve stenosis. There is no aortic valve regurgitation. Mitral Valve There is mild anterior and posterior mitral leaflet thickening. There is mild mitral annular calcification. There is trace mitral valve regurgitation. There is no mitral valve stenosis. Pulmonic Valve The pulmonic valve is likely normal. Tricuspid Valve Likely normal tricuspid valve structure and function. Tricuspid regurgitation envelope is inadequate for calculation of right ventricular systolic pressure. Normal right atrial pressure. Great Vessels All visible segments of the aorta are normal in size. The pulmonary artery was not well visualized. There is no dilatation of the ascending aorta measuring 2.70 cm. Venous The inferior vena cava is normal in size and collapses greater than 50% with inspiration. Pericardium/Pleural There is no evidence of pericardial effusion. Prior Study Comparison No prior study available for comparison. Measurements 2D Linear Measurements IVSd: 1.01 0.6-0.9/0.6-1.0 cm LVIDd: 4.44 3.9-5.3/4.2-5.9 cm LVIDd Index: 2.51 2.4-3.2/2.2-3.1 cm/m2 LVIDs: 3.84 2.0-3.6 cm LVPWd: 0.96 0.7-1.1 cm LA Diam: 3.40 2.7-3.8/3.0-4.0 cm LAIDs Index: 1.92 1.5-2.3 cm/m2 LVOT Diam: 2.20 3.0+(-)1.3 cm 2D Systolic Function EF 4C: 42.50 >55% EF 2C: 61.40 >55% EF BiP: 52.40 >55% Mitral Valve MV Pk E: 0.64 MV PK A: 0.83 MV Decel Time: 236.00 E/A: 0.80 E'Lateral: 6.96 E'Medial: 3.70 E/E' Med: 17.20 E/E' Lat: 9.20 PHT: 69.00 MVA PHT: 3.19 Decel Taos: 2.71 Aortic Valve AoV Pk Raciel: 1.01 AoV Pk Grad: 4.00 TAMANNA: 2.87 AI Pk Raciel: 3.40 AI [place]: 2.12 LVOT LVOT Pk Raciel: 0.78 LVOT Mn Raciel: 0.56 LVOT VTI: 0.18 LVOT Pk Grad: 2.00 LVOT Mn Grad: 1.00 LVOT Diam: 2.20 LVOT Area: 3.80 Diastolic Function MV Pk E: 0.64 MV Pk A: 0.83 E/A: 0.80 E'Medial: 3.70 E/E' Med: 17.20 E' Laterial: 6.96 E/E' Lat: 9.20 Right Ventricle TAPSE (mm): 14.20 TVS' Raciel: 7.94 Great Vessels Aorta Sinus of Valsalva: 3.20 2.0-3.5 cm Ao Asc: 2.70 2.1-3.4 cm Ao Arch: 3.10 Pulmonary Veins Pulm Vein S/D 1.30 Pulmonary Valve PV Pk Raciel: 0.83 Peak PV Grad: 3.00 Updated in Other Vendor System with Status of Final Carson Shook MD electronically signed on 04/07/2025 2:59:31 PM with status of Final
--- OUTSIDE RECORDS SUMMARY | 2025-04-06 17:58 | XMS_ITS | Clinical Summary ---
Author Organization [facility] Address [address] [facility] [place] [address] Phone Care Team Providers Care Supply Aide Name Role Phone John Mendez MD Primary [...] COLONOSCOPY Medical History Medical History Date Comments [place], old 01/19/2017 DX:[place], old; COMM ENT: [place] 2004, [place] (STEMI) 05/2016 [facility], has 8 stents Post-nasal drip 01/19/2017 DX:Post-nasal dr ip Grief reaction DX:Grief reactio n; COMMENT: 2011 Ankylosing spondylitis ([facility] V24, [facility] [place] 01/19/2017 DX:Ankylosing spondylitis ([facility]); COMMENT: [...] diabetes mellitus wit h peripheral vascular disease ([facility] [place], [facility] [place] V28) 01/19/2017 DX:Type 2 diabetes mellitus with peripheral vascular disease (HCC) PVD (peripheral vascular dis ease) ([facility] [place]24) 04/29/2017 DX:PVD (peripheral vascular disease) ([facility] [...] age to complete this topic Care Teams Supply Aide Relationship Specialty Start Date End Date John Mendez MD [address] [place] [address] Dr Cheung [facility] [place] PCP - General Family Medicine 10/24/24
== END ==
LOC: HO.CARD 14:34
PROVIDERS: PCP Family Medicine; Visit Provider Internal Medicine
DX: I25.10 Atherosclerotic heart disease of native coronary artery without angina pectoris (principal)
CPT/HCPCS: 93306; Q9957

== ENCOUNTER → 2025-04-06 14:37 | Outpatient (BNV) | payer MEDICARE, SELFPAY | PROVIDERS: PCP Family Medicine; Visit Provider Internal Medicine Cardiovascular Disease | DX: I34.81 Nonrheumatic mitral (valve) annulus calcification (principal); I25.10 Atherosclerotic heart disease of native coronary artery without angina pectoris | CPT/HCPCS: 93306 ==